=== PATIENT | male | born 1980 | race Caucasian/White ===

== ENCOUNTER 2023-11-02 10:23 | Outpatient (CLI) | payer OTHER, SELFPAY ==
[2023-11-02 10:58] LABS: Hematocrit 28.4 % (40.0-54.0); Mean Corpuscular HGB Conc 31.7 g/dL (32-36); Mean Corpuscular Hemoglobin 31.7 pg (27.0-31.0); Mean Platelet Volume 8.4 fl (8.7-11.0); Platelet Count Result 159 K/mm3 (150-420); Red Blood Count 2.84 M/mm3 (4.70-6.10); Red Cell Distribution Width 17.1 % (11.6-14.4); White Blood Count 1.6 K/mm3 (4.8-10.8)
[2023-11-02 11:11] LABS: Partial Thromboplastin Time 26.6 Sec (23.9-30.70); Prothrombin Time 10.6 Seconds (9.50-12.1)
[2023-11-02 11:18] LABS: Band Neutrophils Percent 1 % (0-6); Lymphocytes Absolute Manual 0.62 K/mm3 (1.1-4.5); Lymphocytes Percent Manual 39 % (18-44); Monocytes Absolute Manual 0.11 K/mm3 (0.1-0.90); Monocytes Percent Manual 7 % (3-9); Neutrophils Percent Manual 49 % (46-73); Total Cells Counted 100
[2023-11-02 11:19] LABS: Eosinophils Absolute Manual 0.06 K/mm3 (0.02-0.50); Eosinophils Percent Manual 4 % (1-6); Platelet Estimate Adequate (Adequate)
[2023-11-02 12:47] LABS: HIV 1 P24 AG Negative (Negative); HIV 1/2 AB Negative (Negative)
[2023-11-03 07:53] LABS: Fibrinogen 239 mg/dL (175-425)
[2023-11-04 06:58] LABS: Hepatitis B Surface Antigen NON-REACTIVE (NON-REACTIVE)
[2023-11-04 07:53] LABS: Hepatitis C Virus Antibody NON-REACTIVE (NON-REACTIVE)
[2023-11-04 07:58] LABS: Hepatitis A Antibody IgM NON-REACTIVE (NON-REACTIVE); Hepatitis B Core Antibody NON-REACTIVE (NON-REACTIVE)
[2023-11-04 09:53] LABS: Alanine Aminotransferase 31 U/L (6-50); Albumin Level 4.2 g/dL (3.5-5.1); Alkaline Phosphatase 181 U/L (38-126); Anion Gap 10 mmol/L (4-12); Aspartate Amino Transferase 26 U/L (17-59); Bilirubin,Total 0.2 mg/dL (0.2-1.3); Blood Urea Nitrogen 17 mg/dL (9-20); Calcium 9.2 mg/dL (8.4-10.2); Carbon Dioxide 27 mmol/L (22-30); Chloride 101 mmol/L (98-107); Estimated Glomerular Filt Rate > 60; Glucose 94 mg/dL (65-110); Iron 75 ug/dL (49-181); Osmolality Calculated 287 mOsm/kg (285-295); Potassium 4.4 mmol/L (3.4-5.0); Sodium 138 mmol/L (137-145)
[2023-11-04 10:02] LABS: Percent Iron Saturation 32 % (20-50)
[2023-11-04 10:59] LABS: Folic Acid 15.2 ng/mL (2.76->20)
[2023-11-08 12:02] LABS: Reference Lab Test Name FLOW CYTOMETRY
== END 2023-11-02 10:24 | disposition home or self-care (01) ==
PROVIDERS: PCP Family Medicine; Visit Provider Internal Medicine Hematology
DX: D61.818 Other pancytopenia (principal)
CPT/HCPCS: 36415; 80053; 80074; 82607; 82746; 83540; 83550; 85025; 85384; 85610; 85730; 87806; 88184; 88185

== ENCOUNTER 2023-11-07 08:04 | Outpatient (CLI) | payer OTHER, SELFPAY ==
--- NOTE | ~2023-11-07 | CT_ITS ---
EXAMINATION: CT chest abdomen pelvis w con DATE: 11/07/2023 08:57 INDICATION: Pancytopenia. Recent fall with right rib pain. TECHNIQUE: Computed tomography (CT) of the chest, abdomen, and pelvis was performed without intraveno us contrast. Automated exposure control and iterative reconstruction technique were employed. The dos e-length product was 1751.35 mGy-cm. COMPARISON: None FINDINGS: CHEST CT: Mild groundglass opacities and some tree-in-bud opacity along linear bands of discoid atelectasis/sca rring in the left lower lobe which raises concern for associated pneumonia. A couple additional small regions of tree-in-bud opacity in the anterior segment of the left upper lobe. There is also mild at electasis at the lingula. Mild dependent atelectasis in the right lower lobe along side a few mildly displaced subacute fractures of the posterolateral right fifth-ninth ribs with developing early callu s formation. No pleural effusion or pneumothorax. Heart size is normal. No pericardial effusion. Thor acic aorta is normal in caliber with no dissection. Mild likely reactive mediastinal lymphadenopathy, the largest lymph node measuring 1.2 cm in short axis diameter situated between the bilateral brachi ocephalic veins. Mild thoracic spondylosis with chronic appearing mild anterior wedging of a few lowe r thoracic vertebral bodies.. ABDOMEN/PELVIS CT: Liver, gallbladder, pancreas, bilateral adrenal glands and kidneys are normal. Splenomegaly measuring 18.9 maximal craniocaudal length. Bowels including the appendix are normal. Bladder is normal. No fr ee intraperitoneal gas or fluid. No pathologically enlarged abdominal or pelvic lymphadenopathy. Like ly lateral right buttock/hip internal degloving injury with lenticular fluid collection consistent wi th hematoma/seroma measuring 16.2 cm craniocaudally and 6.0 x 2.7 cm in maximal transaxial dimensions along the superficial fascial plane of the right gluteal musculature. Mild lumbar and moderate lumbo sacral spondylosis. IMPRESSION: 1. Groundglass and tree-in-bud opacities in the left lower lobe with additional tree-in-bud opacities in the left upper lobe suspicious for pneumonia or sequela of prior pneumonia. 2. Healing subacute mildly displaced posterolateral right fifth-ninth rib fractures. 3. Likely reactive mild mediastinal lymphadenopathy. 4. Nonspecific splenomegaly measuring 18.9 cm. No acute intra-abdominal/pelvic process. 5. 16 x 6 x 3 cm likely hematoma/seroma suggesting internal degloving injury along the superficial fa scia of the lateral right gluteal muscles. Reviewed, dictated and finalized at location B. IMPRESSION: 1. Groundglass and tree-in-bud opacities in the left lower lobe with additional tree-in-bud opacities in the left upper lobe suspicious for pneumonia or seque la of prior pneumonia. 2. Healing subacute mildly displaced posterolateral right fifth-ninth rib fract ures. 3. Likely reactive mild mediastinal lymphadenopathy. 4. Nonspecific splenomegaly measuring 18.9 cm. No acute intra-abdominal/pelvic process. 5. 16 x 6 x 3 cm likely hematoma/seroma suggesting internal degloving injury al venus the superficial fascia of the lateral right gluteal muscles.
== END 2023-11-07 08:05 | disposition home or self-care (01) ==
PROVIDERS: PCP Family Medicine; Visit Provider Internal Medicine Hematology
DX: D61.818 Other pancytopenia (principal); R91.8 Other nonspecific abnormal finding of lung field; S22.41XD Multiple fractures of ribs, right side, subsequent encounter for fracture with routine healing; R59.0 Localized enlarged lymph nodes; R16.1 Splenomegaly, not elsewhere classified
CPT/HCPCS: 71260; 74177; Q9967

== ENCOUNTER 2023-12-14 14:04 | Outpatient (CLI) | payer OTHER, SELFPAY ==
[2023-12-14 14:19] LABS: Hematocrit 35.5 % (40.0-54.0); Hemoglobin 11.4 g/dL (14.0-18.0); Immature Platelet Fraction Pct 1.4 % (1.0-7.0); Mean Corpuscular HGB Conc 32.1 g/dL (32-36); Mean Corpuscular Hemoglobin 31.8 pg (27.0-31.0); Mean Corpuscular Volume 98.9 fL (78.0-102.0); Mean Platelet Volume 8.4 fl (8.7-11.0); Platelet Count Result 116 K/mm3 (150-420); Red Blood Count 3.59 M/mm3 (4.70-6.10); Red Cell Distribution Width 16.7 % (11.6-14.4); White Blood Count 2.1 K/mm3 (4.8-10.8)
[2023-12-14 14:33] LABS: Partial Thromboplastin Time 26.5 Sec (23.9-30.70); Prothrombin Time 10.9 Seconds (9.50-12.1)
[2023-12-14 15:09] LABS: Alanine Aminotransferase 35 U/L (16-63); Albumin Level 4.3 g/dL (3.4-5.0); Alkaline Phosphatase 204 U/L (46-116); Anion Gap 9 mmol/L (4-12); Aspartate Amino Transferase 17 U/L (15-37); Bilirubin,Total 0.3 mg/dL (0.00-1.00); Blood Urea Nitrogen 16 mg/dL (7-18); Calcium 9.1 mg/dL (8.5-10.1); Carbon Dioxide 28 mmol/L (21-32); Chloride 102 mmol/L (98-108); Estimated Glomerular Filt Rate > 60; Glucose 136 mg/dL (70-99); Lactate Dehydrogenase 186 U/L (85-227); Osmolality Calculated 291 mOsm/kg (285-295); Potassium 4.2 mmol/L (3.5-5.1); Sodium 139 mmol/L (136-145); Total Protein 8.1 g/dL (6.4-8.2)
[2023-12-14 15:51] LABS: Band Neutrophils Percent 1 % (0-6); Basophils Percent Manual 0 % (0-1); Eosinophils Absolute Manual 0.02 K/mm3 (0.02-0.50); Eosinophils Percent Manual 1 % (1-6); Lymphocytes Absolute Manual 1.05 K/mm3 (1.1-4.5); Lymphocytes Percent Manual 50 % (18-44); Monocytes Absolute Manual 0.04 K/mm3 (0.1-0.90); Monocytes Percent Manual 2 % (3-9); Neutrophils Absolute Manual 0.98 K/mm3 (1.3-6.7); Neutrophils Percent Manual 46 % (46-73); Platelet Estimate Adequate (Adequate); Total Cells Counted 100
[2023-12-15 08:14] LABS: Fibrinogen 389 mg/dL (175-425)
== END 2023-12-14 14:05 | disposition home or self-care (01) ==
LOC: CHSLAB 14:05
PROVIDERS: PCP Family Medicine; Visit Provider Internal Medicine Hematology
DX: D61.818 Other pancytopenia (principal)
CPT/HCPCS: 36415; 80053; 83615; 85025; 85055; 85384; 85610; 85730; 86850; 86900; 86901

== ENCOUNTER 2024-03-15 13:08 | Outpatient (CLI) | payer OTHER, SELFPAY ==
[2024-03-15 13:29] LABS: Hematocrit 31.6 % (40.0-54.0); Hemoglobin 10.3 g/dL (14.0-18.0); Immature Platelet Fraction Pct 0.9 % (1.0-7.0); Mean Corpuscular HGB Conc 32.6 g/dL (32-36); Mean Corpuscular Hemoglobin 31.8 pg (27.0-31.0); Mean Corpuscular Volume 97.5 fL (78.0-102.0); Mean Platelet Volume 8.7 fl (8.7-11.0); Platelet Count Result 99 K/mm3 (150-420); Red Blood Count 3.24 M/mm3 (4.70-6.10); Red Cell Distribution Width 17.4 % (11.6-14.4); White Blood Count 1.7 K/mm3 (4.8-10.8)
--- NOTE | 2024-03-15 13:36 | ECHO_ITS ---
Patient Info Name: Samy Garcia Age: 43 years : 1980 Gender: Male Ht: 72 in Wt: 290 lbs BSA: 2.64 m2 HR: 73 bpm BP: 124 / 82 mmHg Technical Quality: Excellent, Good Exam Date: 03/15/2024 1:45 PM Exam Location: Echo Lab Patient Status: Outpatient Admit Date: 03/15/2024 Staff Ordering Physician: Atilio Berrios MD Risk Modeler: Candy Jo RDCS Attending Provider: Atilio Berrios MD Exam Type: CA echo doppler color flow Study Info Complete two-dimensional, color flow and Doppler transthoracic echocardiogram is performed. Summary 1. Complete two-dimensional, color flow and Doppler transthoracic echocardiogram is performed. 2. Left ventricular chamber dimension is normal. 3. Left ventricular systolic function is normal, estimated at 60-65%. 4. The left ventricular diastolic function is normal. 5. E/e' 9 is minimally elevated. 6. Left atrial chamber dimension is mildly enlarged. 7. There is trace tricuspid valve regurgitation. 8. No pulmonary hypertension, estimated pulmonary arterial systolic pressure is 32 mmHg. 9. There is trace pulmonic regurgitation. Left Ventricle E/e' 9 is minimally elevated. Left ventricular chamber dimension is normal. Left ventricular systolic function is normal, estimated at 60-65%. The left ventricular diastolic function is normal. Right Ventricle Right ventricular systolic function is normal and with normal TAPSE 2.7 cm. Right ventricular chamber dimension is normal. Left Atria Left atrial chamber dimension is mildly enlarged. Right Atria Right atrial chamber dimension is normal. Aortic Valve The aortic valve is trileaflet. There is no aortic valve stenosis. There is no aortic valve regurgitation. Pulmonic Valve There is trace pulmonic regurgitation. Mitral Valve There is no mitral valve stenosis. There is no mitral valve regurgitation. Tricuspid Valve There is trace tricuspid valve regurgitation. No pulmonary hypertension, estimated pulmonary arterial systolic pressure is 32 mmHg. Pericardium/Pleural There is no pericardial effusion. Inferior Vena Cava Normal inferior vena cava with >50% collapse upon inspiration consistent with normal right atrial pressure, 5 mmHg. Aorta The aortic root size at the sinus of Valsalva is normal. Left Ventricular Outflow Tract Name Value Normal LVOT 2D LVOT Diameter 2.2 cm LVOT Doppler LVOT Peak Velocity 120 cm/s LVOT Peak Gradient 6 mmHg LVOT Mean Gradient 3 mmHg LVOT VTI 20 cm LVOT VTI/AV VTI Ratio 0.8 LVOT Stroke Volume 78 ml Pulmonic Valve Name Value Normal PV Doppler PV Peak Velocity 108 cm/s PV Peak Gradient 5 mmHg PV Regurgitation Doppler ID Peak End Diastolic Velocity 107 cm/s Mitral Valve Name Value Normal MV Doppler MV Peak Gradient 6 mmHg MV Mean Gradient 2 mmHg MV Decel Stephens 427 cm/s2 MV PHT 61 ms MV Area (PHT) 3.6 cm2 4.0-5.0 MV Area (Cont Eq VTI) 2.6 cm2 MV Diastolic Function MV E Peak Velocity 90 cm/s MV A Peak Velocity 58 cm/s MV E/A 1.5 MV Decel Time 210 ms Tricuspid Valve Name Value Normal TV Regurgitation Doppler TR Peak Velocity 262 cm/s TR Peak Gradient 25 mmHg Estimated PAP/RSVP RA Pressure 5 mmHg <=5 PA Systolic Pressure 32 mmHg <36 RV Systolic Pressure 32 mmHg <36 Aortic Valve Name Value Normal AV Doppler AV Peak Velocity 128 cm/s AV Peak Gradient 7 mmHg AV Mean Gradient 4 mmHg AV VTI 26 cm AV Area (Cont Eq VTI) 3.0 cm2 >=3.0 AV Area (Cont Eq Chavo) 3.6 cm2 AV V1/V2 Ratio 0.93 AV Regurgitation 2D LVOT Area 3.8 cm2 Ventricles Name Value Normal LV Dimensions 2D/MM IVS Diastolic Thickness (2D) 0.8 cm 0.6-1.0 IVS Diastole Thickness (MM) 0.8 cm 0.6-1.0 LVID Diastole (2D) 5.6 cm 4.2-5.8 LVID Diastole (MM) 5.8 cm 4.2-5.8 LVIW Diastolic Thickness (2D) 0.9 cm 0.6-1.0 LVIW Diastolic Thickness (MM) 0.9 cm 0.6-1.0 IVS Systolic Thickness (MM) 1.1 cm LVID Systole (2D) 4.1 cm 2.5-4.0 LVID Systole (MM) 4.1 cm 2.5-4.0 LVIW Systolic Thickness (MM) 1.3 cm LVOT Diameter 2.2 cm LV Mass (2D Cubed) 184.01 g 88.00-224.00 LV Mass Index (2D Cubed) 70 g/m2 49-115 Relative Wall Thickness (2D) 0.34 LV Mass (MM Cubed) 190.24 g 88.00-224.00 LV Mass Index (MM Cubed) 72 g/m2 49-115 Relative Wall Thickness (MM) 0.30 LV Fractional Shortening/Ejection Fraction 2D/MM LV Fractional Shortening (2D) 26 % 25-43 LV Fractional Shortening (MM) 29 % 25-43 LV EF (MM Teicholz) 55 % 52-72 LV EF (2D Teicholz) 50 % 52-72 LV Diastolic Volume (4C MOD) 163 ml LV EF (4C MOD) 62 % LV Diastolic Length (4C) 9.0 cm LV Systolic Length (4C) 7.5 cm LV Stroke Volume (4C MOD) 102 ml Atria Name Value Normal LA Dimensions LA Volume (4C A-L) 63 ml RA Dimensions RA Area (4C) 16.3 cm2 <=18.0 Report Signatures
[2024-03-15 14:00] LABS: Alanine Aminotransferase 35 U/L (16-63); Alkaline Phosphatase 199 U/L (46-116); Anion Gap 10 mmol/L (4-12); Aspartate Amino Transferase 15 U/L (15-37); Band Neutrophils Percent 0 % (0-6); Bilirubin,Total 0.4 mg/dL (0.00-1.00); Blood Urea Nitrogen 15 mg/dL (7-18); Carbon Dioxide 29 mmol/L (21-32); Chloride 102 mmol/L (98-108); Estimated Glomerular Filt Rate > 60; Glucose 115 mg/dL (70-99); Lactate Dehydrogenase 136 U/L (85-227); Lymphocytes Absolute Manual 0.88 K/mm3 (1.1-4.5); Lymphocytes Percent Manual 52 % (18-44); Monocytes Absolute Manual 0.05 K/mm3 (0.1-0.90); Monocytes Percent Manual 3 % (3-9); Neutrophils Absolute Manual 0.76 K/mm3 (1.3-6.7); Neutrophils Percent Manual 45 % (46-73); Osmolality Calculated 293 mOsm/kg (285-295); Platelet Estimate Decreased (Adequate); Sodium 141 mmol/L (136-145); Total Cells Counted 100; Total Protein 7.4 g/dL (6.4-8.2); Uric Acid 5.3 mg/dL (3.5-7.2)
== END 2024-03-15 13:09 | disposition home or self-care (01) ==
LOC: CHSIMG 13:11
PROVIDERS: PCP Family Medicine; Visit Provider Internal Medicine Hematology
DX: Z51.81 Encounter for therapeutic drug level monitoring (principal)
CPT/HCPCS: 36415; 80053; 83615; 84550; 85025; 85055; 93306

== ENCOUNTER 2024-03-28 10:36 | Outpatient (CLI) | payer OTHER, SELFPAY ==
[2024-03-28 10:45] VITALS: BP 130/75; PULSE 76; RESP 16; TEMP 36.6; O2SAT 97; BMI 39.3
[2024-03-28] MEDS: CLADRIBINE IVPB (11:19)
[2024-03-28] MEDS: SODIUM CHLORIDE 0.9% IVPB (11:19)
--- OUTSIDE RECORDS SUMMARY | 2024-03-28 11:38 | XMS_ITS | Encounter Summary ---
Author Organization [facility] Address [facility] [place] [address] [place] [address] Care Team Providers Care Foundation Digger Name Role Phone Everette Salazar MD Primary Care Provider [phone] Encounter Details Date Type Department Care Team (Late st Contact Info) Description 08/05/2018 Abstract SFL CONVERSION [address] [place] [address] , Generic Conversion, Social History Tobacco Use Types Packs/Day Years Used Date Smoking Tobacco: Never Assessed Sex and Gender Information Value Date Recorded Sex Assigned at Not on file Legal Sex Male 5:58 PM MID TEACHER Gender Identity Not on file Sexual Orientation Not on file documented as of this encounter Plan of Treatment Not on file documented as of this encounter Visit Diagnoses Not on filedocumented in this encounter Additional Health Concerns Infection Onset Date Last Indicated Resolved Time COVID-19 Rule Out 04/20/2020 04/20/2020 04/21/2020 12:41 PM MID TEACHER COVID-19 Rule Out 04/23/2020 04/23/2020 04/23/2020 12:47 PM MID TEACHER documented as of this encounter Care Teams Foundation Digger Relationship Specialty Start Date End Date Everette Salazar MD [address] [place] [address] PCP - General FAMILY PRACTICE 07/25/18 documented as of this encounter
--- OUTSIDE RECORDS SUMMARY | 2024-03-28 11:38 | XMS_ITS | Encounter Summary ---
Author Organization [facility] Address [address] [place] [address] Care Team Providers Care Penetration Tester Name Role Phone Unavailable Primary Care Provider Unavailabl e Encounter Details Date Type Department Care Team (Late st Contact Info) Description 08/12/2004 Outpatient Historical [facility]3] Primary Care - [address] [place] [address] Belgica Hernadez MD NO ADDRESS ON FILE Social History Tobacco Use Types Packs/Day Years Used Date Smoking Tobacco: Never Assessed Sex and Gender Information Value Date Recorded Sex Assigned at Not on file 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
--- OUTSIDE RECORDS SUMMARY | 2024-03-28 11:38 | XMS_ITS | Clinical Summary ---
Author Organization [facility] Address [facility] [facility] [place] [address] [place] [address] Care Team Providers Care Business Continuity Coordinator Name Role Phone Everette Salazar MD Primary Care Provider [phone] Allergies Active Allergy Reactions Criticality Noted Date Comments Egg White (Egg Protein) GI Upset Medium 04/21/2020 Penicillins Swelling High 04/21/2020 Medications HYDROcodone-alexa taminophen 7.5-325 MG tablet Take 1 tablet by mouth as needed for Pain. Chronic back pain 1 Active carBAMazepine 200 MG tabletIndicatio ns:chronic back pain Take 200 mg by mouth 2 (two) times daily. Indications: chronic back pain Active DULoxetine 60 MG capsuleIndicati ons:depression Take 60 mg by mouth 2 (two) times daily. Indications: depression Active ofloxacin 0.3 % ophthalmic solutionIndicat ions:surgery drop Place 1 drop into the right eye 3 (three) times daily. Indications: surgery drop Active prednisoLONE acetate 1 % ophthalmic suspensionIndic ations:surgery drop Place 1 drop into the right eye 3 (three) times daily. Indications: surgery drop Active ketorolac 0.5 % ophthalmic solution Place 1 drop into the right eye 3 (three) times daily. Surgery drop 1 Active Active Problems Problem Noted Date Diagnosed Date Cataracts, bilateral Overview (05/07/2021): Due to taking Prednisone a couple of years ago. pt states Family History Medical History Relation Comments Cancer Father Leukemia Diabetes Father Hypertension Father Cancer Mother Throat Relation Status Comments Brother Alive Father Alive Mother Alive Social History Tobacco Use Types Packs/Day Years Used Date Smoking Tobacco: Every Day Cigarettes 0.5 24 Cigars Smokeless Tobacco: Never Tobacco Cessation:Ready to Q uit: No Comments:14 yrs of Cigarettes,10 yrs of Cigar(5-6/day) Alcohol Use Standard Drinks/Week Comments Not Currently 0 (1 standard drink = 0.6 oz pur e alcohol) Sex and Gender Information Value Date Recorded Sex Assigned at Not on file Legal Sex Male 5:58 PM INSIDE OUTSIDE SALES REPRESENTATIVE Gender Identity Not on file Sexual Orientation Not on file Last Filed Vital Signs Vital Sign Reading Time Taken Comments Blood Pressure 124/86 04/23/2020 10:30 AM INSIDE OUTSIDE SALES REPRESENTATIVE Pulse 64 04/23/2020 10:30 AM INSIDE OUTSIDE SALES REPRESENTATIVE Temperature 36.5 ??C (97.7 ??F) 04/23/2020 10:[address] Respiratory Rate 18 04/23/2020 10:30 AM INSIDE OUTSIDE SALES REPRESENTATIVE Oxygen Saturation 96% 04/23/2020 10:30 AM INSIDE OUTSIDE SALES REPRESENTATIVE Inhaled Oxygen Concentration - - Weight 118 kg (260 lb 2.3 oz) 04/21/2020 10:47 A M INSIDE OUTSIDE SALES REPRESENTATIVE Height 182 cm (5' 11.65 ) 04/21/2020 10:47 AM CS T Body Mass Index 35.62 04/21/2020 10:47 AM INSIDE OUTSIDE SALES REPRESENTATIVE Plan of Treatment Health Maintenance Due Date Last Done Comments Annual Physical 05/13/1983 Pneumococcal Vaccine: Pediat rics (0 to 5 Years) and At-Risk Patients (6 to 64 Years) (1 of 2 - PCV) 1986 Hepatitis C 1998 DTaP, Tdap and Td Vaccines ( 1 - Tdap) 05/13/1999 Hepatitis B Vaccines (1 of 3 - 19+ 3-dose series) 05/13/1999 COVID-19 Vaccine (2023-2 5 season) 2023 Influenza Adult (#1) 2023 HPV Vaccines Aged Out No longer eligi ble based on patient's age to complete this topic Meningococcal B Vaccine Aged Out No l onger eligible based on patient's age to complete this topic Meningococcal Vaccine Aged Out No chito ayan eligible based on patient's age to complete this topic RSV Immunizations Under 20 Months Aged Out No longer eligible based on patient's age to complete this topic Medical Devices Implanted Type Area Tank Carpenter Device Identifier Shelf Expiration Date Model / Serial / Lot Iol Adalid Sn60wf - [id number] Implanted:Qty: 1 on 04/23/2020 by Manjit Capellan MD at [facility] Lens Right: Eye ADALID - SURGICAL DIV [id number] 04/28/2023 [id number] / [id number] Description:Dr. Capellan confirm ed IOl Insurance [employer] Care Teams Business Continuity Coordinator Relationship Specialty Start Date End Date Everette Salazar MD [address] [place] [id number] PCP - General FAMILY PRACTICE 07/25/18
--- OUTSIDE RECORDS SUMMARY | 2024-03-28 11:38 | XMS_ITS | Clinical Summary ---
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
--- OUTSIDE RECORDS SUMMARY | 2024-03-28 11:38 | XMS_ITS | Encounter Summary ---
Author Organization [facility] Address [address] [place] [address] Care Team Providers Care Trust Operations Assistant Name Role Phone Unavailable Primary Care Provider Unavailabl e Encounter Details Date Type Department Care Team (Late st Contact Info) Description 09/10/[address] 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
[2024-03-28 13:36] VITALS: BP 130/70; PULSE 80; RESP 14; O2SAT 98
[2024-03-28] MEDS: HEPARIN SODIUM LOCK FLUSH 500 UNITS/5 ML SYRINGE IV PUSH (13:36)
--- NOTE | 2024-03-28 13:38 | PC.NURSE ---
Tolerated cycle 1 day 3 treatment well. SEE MAR/Patient care notes.
== END 2024-03-28 10:37 | disposition home or self-care (01) ==
PROVIDERS: PCP Family Medicine; Visit Provider Internal Medicine Hematology
DX: Z51.11 Encounter for antineoplastic chemotherapy (principal); C91.40 Hairy cell leukemia not having achieved remission
CPT/HCPCS: 96413; 96415; J7040; J9065

== ENCOUNTER 2024-03-29 10:31 | Outpatient (CLI) | payer OTHER, SELFPAY ==
[2024-03-29 10:52] VITALS: BP 128/76; PULSE 78; RESP 14; TEMP 36.5; O2SAT 97; BMI 39.2
[2024-03-29] MEDS: SODIUM CHLORIDE 0.9% IVPB (11:00)
[2024-03-29] MEDS: CLADRIBINE IVPB (11:00)
--- OUTSIDE RECORDS SUMMARY | 2024-03-29 11:24 | XMS_ITS | Clinical Summary ---
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
--- OUTSIDE RECORDS SUMMARY | 2024-03-29 11:24 | XMS_ITS | Encounter Summary ---
Author Organization [facility] Address [facility] 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 Gender Identity Not on file Sexual Orientation Not on file documented as of this encounter Plan of Treatment Not on file documented as of this encounter Visit Diagnoses Not on filedocumented in this encounter Additional Health Concerns Infection Onset Date Last Indicated Resolved Time COVID-19 Rule Out 04/20/2020 04/20/2020 04/21/2020 12:41 PM POLISH COMPOUNDER COVID-19 Rule Out 04/23/2020 04/23/2020 04/23/2020 12:47 PM POLISH COMPOUNDER documented as of this encounter Care Teams Safety Deposit Boxes Custodian Relationship Specialty Start Date End Date Everette Salazar MD [address] [place] [address] PCP - General FAMILY PRACTICE 07/25/18 documented as of this encounter
--- OUTSIDE RECORDS SUMMARY | 2024-03-29 11:24 | XMS_ITS | Encounter Summary ---
Author Organization [facility] Address 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
--- OUTSIDE RECORDS SUMMARY | 2024-03-29 11:24 | XMS_ITS | Encounter Summary ---
Author Organization [facility] Address [address] [place] [address] Care Team Providers Care Prospect Manager Name Role Phone Unavailable Primary Care Provider Unavailabl e Encounter Details Date Type Department Care Team (Late st Contact Info) Description 09/10/2004 Outpatient Historical [facility] Primary Care - [address] [place] [address] Belgica Hernadez MD NO ADDRESS ON FILE Social History Tobacco Use Types Packs/Day Years Used Date Smoking Tobacco: Never Assessed Sex and Gender Information Value Date Recorded Sex Assigned at Not on file Legal Sex Male 2:42 AM CARVER AND CHECKERER SPECIALS Gender Identity Not on file Sexual Orientation Not on file documented as of this encounter Plan of Treatment Not on file documented as of this encounter Visit Diagnoses Not on filedocumented in this encounter
--- OUTSIDE RECORDS SUMMARY | 2024-03-29 11:24 | XMS_ITS | Clinical Summary ---
Author Organization [facility] Address [facility] [facility] [place] [address] [place] [address] Care Team Providers Care Automatic Driller And Reamer Name Role Phone Everette Salazar MD Primary Care Provider [phone] Allergies Active Allergy Reactions Criticality Noted Date [...] on file Legal Sex Male 5:58 PM DOWNSTAIRS MAID Gender Identity Not on file Sexual Orientation Not on file Last Filed Vital Signs Vital Sign Reading Time Taken Comments Blood Pressure 124/86 04/23/2020 10:30 AM DOWNSTAIRS MAID Pulse 64 04/23/2020 10:30 AM DOWNSTAIRS MAID Temperature 36.5 ??C (97.7 ??F) 04/23/2020 10:[address] Respiratory Rate 18 04/23/2020 10:30 AM DOWNSTAIRS MAID Oxygen Saturation 96% 04/23/2020 10:30 AM DOWNSTAIRS MAID Inhaled Oxygen Concentration - - Weight 118 kg (260 lb 2.3 oz) 04/21/2020 10:47 A M DOWNSTAIRS MAID Height 182 cm (5' 11.65 ) 04/21/2020 10:47 AM CS T Body Mass Index 35.62 04/21/2020 10:47 AM DOWNSTAIRS MAID Plan of Treatment Health Maintenance Due Date [...] this topic Medical Devices Implanted Type Area Diesel Truck Mechanic Device Identifier Shelf Expiration Date Model / Serial / Lot Iol Adalid Sn60wf - [id number] Implanted:Qty: 1 on 04/23/2020 by Manjit Capellan MD at [facility] Lens Right: Eye ADALID - SURGICAL DIV [id number] 04/28/2023 [id number] / [id number] Description:Dr. Capellan confirm ed IOl Insurance [place] [place] Care Teams Automatic Driller And Reamer Relationship Specialty Start Date End Date Everette Salazar MD [address] [place] [phone] PCP - General FAMILY PRACTICE 07/25/18
[2024-03-29] MEDS: HEPARIN SODIUM LOCK FLUSH 500 UNITS/5 ML SYRINGE IV PUSH (12:59)
[2024-03-29 13:09] VITALS: BP 133/77; PULSE 80; RESP 14; TEMP 36.6; O2SAT 97
--- NOTE | 2024-03-29 13:10 | PC.NURSE ---
Tolerated Cladribine infusion well today. SEE Patient care notes/MAR.
== END 2024-03-29 10:32 | disposition home or self-care (01) ==
PROVIDERS: PCP Family Medicine; Visit Provider Internal Medicine Hematology
DX: Z51.11 Encounter for antineoplastic chemotherapy (principal); C91.40 Hairy cell leukemia not having achieved remission
CPT/HCPCS: 96413; 96415; J7040; J9065

== ENCOUNTER 2024-03-30 09:29 | Outpatient (CLI) | payer OTHER, SELFPAY ==
[2024-03-30 09:38] VITALS: BP 128/80; PULSE 80; RESP 14; TEMP 36.6; O2SAT 97; BMI 39.2
--- OUTSIDE RECORDS SUMMARY | 2024-03-30 09:47 | XMS_ITS | Clinical Summary ---
Author Organization [facility] Address [facility] [place] [address] [place] [address] Care Team Providers Care Heliotherapist Name Role Phone Everette Salazar MD Primary Care Provider [phone] Allergies Active Allergy Reactions Criticality Noted Date [...] on file Legal Sex Male 5:58 PM DRILL OPERATOR PNEUMATIC Gender Identity Not on file Sexual Orientation Not on file Last Filed Vital Signs Vital Sign Reading Time Taken Comments Blood Pressure 124/86 04/23/2020 10:30 AM DRILL OPERATOR PNEUMATIC Pulse 64 04/23/2020 10:30 AM DRILL OPERATOR PNEUMATIC Temperature 36.5 ??C (97.7 ??F) 04/23/2020 10:[address] Respiratory Rate 18 04/23/2020 10:30 AM DRILL OPERATOR PNEUMATIC Oxygen Saturation 96% 04/23/2020 10:30 AM DRILL OPERATOR PNEUMATIC Inhaled Oxygen Concentration - - Weight 118 kg (260 lb 2.3 oz) 04/21/2020 10:47 A M DRILL OPERATOR PNEUMATIC Height 182 cm (5' 11.65 ) 04/21/2020 10:47 AM CS T Body Mass Index 35.62 04/21/2020 10:47 AM DRILL OPERATOR PNEUMATIC Plan of Treatment Health Maintenance Due Date [...] this topic Medical Devices Implanted Type Area Concrete Batching Plant Operator Device Identifier Shelf Expiration Date Model / Serial / Lot Iol Adalid Sn60wf - [id number] Implanted:Qty: 1 on 04/23/2020 by Manjit Capellan MD at [facility] Lens Right: Eye ADALID - SURGICAL DIV [id number] 04/28/2023 [id number] / [id number] Description:Dr. Capellan confirm ed IOl Insurance [place] Care Teams Heliotherapist Relationship Specialty Start Date End Date Everette Salazar MD [address] [place] [phone] PCP - General FAMILY PRACTICE 07/25/18
--- OUTSIDE RECORDS SUMMARY | 2024-03-30 09:47 | XMS_ITS | Encounter Summary ---
Author Organization [facility] Address [facility] [place] [address] [place] [address] Care Team Providers Care Machinery Mechanic Name Role Phone Everette Salazar MD Primary Care Provider [phone] Encounter Details Date Type Department Care Team (Late st Contact Info) Description 08/05/2018 Abstract SFL CONVERSION [address] [place] [address] , Generic Conversion, Social History Tobacco Use Types Packs/Day Years Used Date Smoking Tobacco: Never Assessed Sex and Gender Information Value Date Recorded Sex Assigned at Not on file Legal Sex Male 5:58 PM SAP BI DEVELOPER Gender Identity Not on file Sexual Orientation Not on file documented as of this encounter Plan of Treatment Not on file documented as of this encounter Visit Diagnoses Not on filedocumented in this encounter Additional Health Concerns Infection Onset Date Last Indicated Resolved Time COVID-19 Rule Out 04/20/2020 04/20/2020 04/21/2020 12:41 PM SAP BI DEVELOPER COVID-19 Rule Out 04/23/2020 04/23/2020 04/23/2020 12:47 PM SAP BI DEVELOPER documented as of this encounter Care Teams Machinery Mechanic Relationship Specialty Start Date End Date Everette Salazar MD [address] [place] [address] PCP - General FAMILY PRACTICE 07/25/18 documented as of this encounter
[2024-03-30] MEDS: SODIUM CHLORIDE 0.9% IVPB (09:58)
[2024-03-30] MEDS: CLADRIBINE IVPB (09:58)
[2024-03-30] MEDS: HEPARIN SODIUM LOCK FLUSH 500 UNITS/5 ML SYRINGE IV PUSH (11:54)
[2024-03-30 12:10] VITALS: BP 131/81; PULSE 78; RESP 14; TEMP 36.6; O2SAT 97
--- NOTE | 2024-03-30 12:13 | PC.NURSE ---
Tolerated Cladribine infusion well. SEE MAR/patient care notes.
== END 2024-03-30 09:30 | disposition home or self-care (01) ==
PROVIDERS: PCP Family Medicine; Visit Provider Internal Medicine Hematology
DX: Z51.11 Encounter for antineoplastic chemotherapy (principal); C91.40 Hairy cell leukemia not having achieved remission
CPT/HCPCS: 96413; 96415; J7040; J9065

== ENCOUNTER 2024-04-09 08:47 | Outpatient (CLI) | payer OTHER, SELFPAY ==
[2024-04-09 09:00] VITALS: BP 132/79; PULSE 92; RESP 16; TEMP 36.6; O2SAT 97; BMI 39.3
--- OUTSIDE RECORDS SUMMARY | 2024-04-09 09:06 | XMS_ITS | Encounter Summary ---
Author Organization [facility] Address [facility] [place] [address] Care Team Providers Care Roller Embosser Name Role Phone Everette Salazar MD Primary Care Provider [phone] Encounter Details Date Type Department Care Team (Late st Contact Info) Description 08/05/2018 Abstract SFL CONVERSION [address] [place] [address] , Generic Conversion, Social History Tobacco Use Types Packs/Day Years Used Date Smoking Tobacco: Never Assessed Sex and Gender Information Value Date Recorded Sex Assigned at Not on file Legal Sex Male 5:58 PM FOOT PIECE ASSEMBLER Gender Identity Not on file Sexual Orientation Not on file documented as of this encounter Plan of Treatment Not on file documented as of this encounter Visit Diagnoses Not on filedocumented in this encounter Additional Health Concerns Infection Onset Date Last Indicated Resolved Time COVID-19 Rule Out 04/20/2020 04/20/2020 04/21/2020 12:41 PM FOOT PIECE ASSEMBLER COVID-19 Rule Out 04/23/2020 04/23/2020 04/23/2020 12:47 PM FOOT PIECE ASSEMBLER documented as of this encounter Care Teams Roller Embosser Relationship Specialty Start Date End Date Everette Salazar MD [address] [place] [address] PCP - General FAMILY PRACTICE 07/25/18 documented as of this encounter
--- OUTSIDE RECORDS SUMMARY | 2024-04-09 09:06 | XMS_ITS | Encounter Summary ---
Author Organization [facility] Address [address] [place] [address] Care Team Providers Care Formulator Compounder Name Role Phone Unavailable Primary Care Provider Unavailabl e Encounter Details Date Type Department Care Team (Late st Contact Info) Description 08/12/2004 Outpatient Historical [facility] Primary Care - [address] [place] [address] Belgica Hernadze MD NO ADDRESS ON FILE Social History Tobacco Use Types Packs/Day Years Used Date Smoking Tobacco: Never Assessed Sex and Gender Information Value Date Recorded Sex Assigned at Not on file Legal Sex Male 2:42 AM CHART CALCULATOR Gender Identity Not on file Sexual Orientation Not on file documented as of this encounter Plan of Treatment Not on file documented as of this encounter Visit Diagnoses Not on filedocumented in this encounter
--- OUTSIDE RECORDS SUMMARY | 2024-04-09 09:06 | XMS_ITS | Clinical Summary ---
Author Organization [facility] Address [address] [facility] Attn: Epic Prelude ADT TU WEBB [address] Care Team Providers Care Director Foundation Name Role Phone Unavailable Primary Care Provider Unavailabl e Social History Tobacco Use Types Packs/Day Years Used Date Smoking Tobacco: Never Assessed Sex and Gender Information Value Date Recorded Sex Assigned at Not on file Legal Sex Male 2:42 AM TELEVISION ANCHOR Gender Identity Not on file Sexual Orientation [...]
--- OUTSIDE RECORDS SUMMARY | 2024-04-09 09:06 | XMS_ITS | Clinical Summary ---
Author Organization [facility] Address [address] [place] [address] Care Team Providers Care House Builder Name Role Phone Everette Salazar MD Primary Care Provider [phone] Allergies Active Allergy Reactions Criticality Noted Date [...] on file Legal Sex Male 5:58 PM ESL PROFESSOR Gender Identity Not on file Sexual Orientation Not on file Last Filed Vital Signs Vital Sign Reading Time Taken Comments Blood Pressure 124/86 04/23/2020 10:30 AM ESL PROFESSOR Pulse 64 04/23/2020 10:30 AM ESL PROFESSOR Temperature 36.5 C (97.7 F) 04/23/2020 10:05 AM ESL PROFESSOR Respiratory Rate 18 04/23/2020 10:30 AM ESL PROFESSOR Oxygen Saturation 96% 04/23/2020 10:30 AM ESL PROFESSOR Inhaled Oxygen Concentration - - Weight 118 kg (260 lb 2.3 oz) 04/21/2020 10:47 A M ESL PROFESSOR Height 182 cm (5' 11.65 ) 04/21/2020 10:47 AM CS T Body Mass Index 35.62 04/21/2020 10:47 AM ESL PROFESSOR Plan of Treatment Health Maintenance Due Date [...] this topic Medical Devices Implanted Type Area Ice Puller Device Identifier Shelf Expiration Date Model / Serial / Lot Iol Adalid Sn60wf - [id number] Implanted:Qty: 1 on 04/23/2020 by Manjit Capellan MD at [facility] Lens Right: Eye ADALID - SURGICAL DIV [id number] 04/28/2023 SN60W / [id number] Description:Dr. Capellan confirm ed IOl Insurance [employer] Care Teams House Builder Relationship Specialty Start Date End Date Everette Salazar MD [address] [facility] [facility] [place] [address] PCP - General FAMILY PRACTICE 07/25/18
--- OUTSIDE RECORDS SUMMARY | 2024-04-09 09:06 | XMS_ITS | Encounter Summary ---
Author Organization [facility] Address [address] [place] [address] Care Team Providers Care Milieu Therapist Name Role Phone Unavailable Primary Care Provider Unavailabl e Encounter Details Date Type Department Care Team (Late st Contact Info) Description 09/10/2004 Outpatient Historical [facility] Primary Care - [address] [place] [address] Belgica Hernadez MD NO ADDRESS ON FILE Social History Tobacco Use Types Packs/Day Years Used Date Smoking Tobacco: Never Assessed Sex and Gender Information Value Date Recorded Sex Assigned at Not on file Legal Sex Male 2:42 AM APARTMENT COMMUNITY ASSISTANT MANAGER Gender Identity Not on file Sexual Orientation Not on file documented as of this encounter Plan of Treatment Not on file documented as of this encounter Visit Diagnoses Not on filedocumented in this encounter
[2024-04-09 09:28] LABS: Hematocrit 25.4 % (40.0-54.0); Hemoglobin 8.3 g/dL (14.0-18.0); Mean Corpuscular HGB Conc 32.7 g/dL (32-36); Mean Corpuscular Hemoglobin 32.4 pg (27.0-31.0); Mean Corpuscular Volume 99.2 fL (78.0-102.0); Mean Platelet Volume 9.3 fl (8.7-11.0); Platelet Count Result 118 K/mm3 (150-420); Red Blood Count 2.56 M/mm3 (4.70-6.10)
[2024-04-09 09:31] LABS: White Blood Count 0.4 K/mm3 (4.8-10.8)
[2024-04-09 09:52] LABS: Alanine Aminotransferase 148 U/L (16-63); Albumin Level 3.3 g/dL (3.4-5.0); Alkaline Phosphatase 164 U/L (46-116); Anion Gap 11 mmol/L (4-12); Aspartate Amino Transferase 72 U/L (15-37); Bilirubin,Total 0.4 mg/dL (0.00-1.00); Blood Urea Nitrogen 11 mg/dL (7-18); Calcium 8.9 mg/dL (8.5-10.1); Carbon Dioxide 23 mmol/L (21-32); Chloride 100 mmol/L (98-108); Estimated CRCL calculation 134 ml/min; Estimated Glomerular Filt Rate > 60; Glucose 120 mg/dL (70-99); Osmolality Calculated 278 mOsm/kg (285-295); Potassium 3.7 mmol/L (3.5-5.1); Sodium 134 mmol/L (136-145); Total Protein 7.7 g/dL (6.4-8.2)
[2024-04-09 10:19] LABS: Band Neutrophils Percent 2 % (0-6); Basophils Percent Manual 0 % (0-1); Eosinophils Percent Manual 0 % (1-6); Lymphocytes Absolute Manual 0.08 K/mm3 (1.1-4.5); Lymphocytes Percent Manual 20 % (18-44); Monocytes Percent Manual 1 % (3-9); Neutrophils Absolute Manual 0.31 K/mm3 (1.3-6.7); Neutrophils Percent Manual 77 % (46-73); Platelet Estimate Adequate (Adequate); Total Cells Counted 100
[2024-04-09] MEDS: ACETAMINOPHEN 325 MG TABLET 650 MG PO (10:40)
[2024-04-09] MEDS: dexAMETHasone SOD PHOS INJ 4 MG/ML VIAL 12 MG IV PUSH (10:40)
[2024-04-09] MEDS: SODIUM CHLORIDE 0.9% IV 250 ML 20 ML (10:40)
[2024-04-09] MEDS: FAMOTIDINE 20 MG/2 ML VIAL IV PUSH (10:44)
[2024-04-09] MEDS: diphenhydrAMINE HCl INJ 50 MG/ML VIAL 25 MG IV PUSH (10:46)
[2024-04-09] MEDS: SODIUM CHLORIDE 0.9% IVPB (11:00)
[2024-04-09] MEDS: RITUXIMAB ABBS IVPB (11:00)
[2024-04-09 11:45] VITALS: BP 132/77; PULSE 88; RESP 14; TEMP 36.6; O2SAT 96
[2024-04-09 13:01] VITALS: TEMP 36.6
[2024-04-09 13:25] VITALS: BP 132/79; PULSE 88; RESP 14; TEMP 36.6; O2SAT 97
[2024-04-09] MEDS: HEPARIN SODIUM LOCK FLUSH 500 UNITS/5 ML SYRINGE IV PUSH (14:39)
--- NOTE | 2024-04-09 14:39 | PC.NURSE ---
Patient tolerated Rituximab infusion well today. SEE MAR/patient care notes.
[2024-04-09 14:40] VITALS: BP 132/80; PULSE 88; RESP 16; TEMP 36.6; O2SAT 97
== END 2024-04-09 08:48 | disposition home or self-care (01) ==
PROVIDERS: PCP Family Medicine; Visit Provider Internal Medicine Hematology
DX: Z51.11 Encounter for antineoplastic chemotherapy (principal); C91.40 Hairy cell leukemia not having achieved remission
CPT/HCPCS: 36415; 36591; 80053; 85025; 85027; 96375; 96413; 96415; A9270; J1100; J1200; J7030; J7050; Q5115

== ENCOUNTER 2024-04-23 08:31 | Outpatient (CLI) | payer OTHER, SELFPAY ==
[2024-04-23 08:50] VITALS: BP 123/76; PULSE 72; RESP 14; TEMP 36.6; O2SAT 97; BMI 38.1
[2024-04-23 08:52] LABS: Hematocrit 31.4 % (40.0-54.0); Mean Corpuscular HGB Conc 31.8 g/dL (32-36); Mean Corpuscular Hemoglobin 32.3 pg (27.0-31.0); Mean Corpuscular Volume 101.3 fL (78.0-102.0); Mean Platelet Volume 8.4 fl (8.7-11.0); Platelet Count Result 162 K/mm3 (150-420); Red Cell Distribution Width 15.9 % (11.6-14.4)
--- OUTSIDE RECORDS SUMMARY | 2024-04-23 08:54 | XMS_ITS | Encounter Summary ---
Author Organization [facility] Address [address] [place] [address] Care Team Providers Care Senior Web Designer Name Role Phone Unavailable Primary Care Provider Unavailabl e Encounter Details Date Type Department Care Team (Late st Contact Info) Description 09/10/2004 Outpatient Historical [facility] Primary Care - [address] [place] [address] Belgica Hernadez MD NO ADDRESS ON FILE Social History Tobacco Use Types Packs/Day Years Used Date Smoking Tobacco: Never Assessed Sex and Gender Information Value Date Recorded Sex Assigned at Not on file Legal Sex Male 2:42 AM EMPLOYEE BENEFITS INSURANCE AGENT Gender Identity Not on file Sexual Orientation Not on file documented as of this encounter Plan of Treatment Not on file documented as of this encounter Visit Diagnoses Not on filedocumented in this encounter
--- OUTSIDE RECORDS SUMMARY | 2024-04-23 08:54 | XMS_ITS | Clinical Summary ---
Author Organization [facility] Address [address] [place] [address] Care Team Providers Care Silk Printer Name Role Phone Everette Salazar MD Primary Care Provider Allergies Active Allergy Reactions Criticality Noted Date [...] on file Legal Sex Male 5:58 PM INDUSTRIAL HEALTH AND SAFETY PROFESSOR Gender Identity Not on file Sexual Orientation Not on file Last Filed Vital Signs Vital Sign Reading Time Taken Comments Blood Pressure 124/86 04/23/2020 10:30 AM INDUSTRIAL HEALTH AND SAFETY PROFESSOR Pulse 64 04/23/2020 10:30 AM INDUSTRIAL HEALTH AND SAFETY PROFESSOR Temperature 36.5 C (97.7 F) 04/23/2020 10:05 AM INDUSTRIAL HEALTH AND SAFETY PROFESSOR Respiratory Rate 18 04/23/2020 10:30 AM INDUSTRIAL HEALTH AND SAFETY PROFESSOR Oxygen Saturation 96% 04/23/2020 10:30 AM INDUSTRIAL HEALTH AND SAFETY PROFESSOR Inhaled Oxygen Concentration - - Weight 118 kg (260 lb 2.3 oz) 04/21/2020 10:47 A M INDUSTRIAL HEALTH AND SAFETY PROFESSOR Height 182 cm (5' 11.65 ) 04/21/2020 10:47 AM CS T Body Mass Index 35.62 04/21/2020 10:47 AM INDUSTRIAL HEALTH AND SAFETY PROFESSOR Plan of Treatment Health Maintenance Due [...] this topic Medical Devices Implanted Type Area Converting Technician Device Identifier Shelf Expiration Date Model / Serial / Lot Iol Adalid Sn60wf - [id number] Implanted:Qty: 1 on 04/23/2020 by Manjit Capellan MD at [facility] Lens Right: Eye ADALID - SURGICAL DIV [id number] 04/28/2023 SN60W / [id number] Description:Dr. Capellan confirm ed IOl Insurance [employer] Care Teams Silk Printer Relationship Specialty Start Date End Date Everette Salazar MD [address] [facility] [place] [address] PCP - General FAMILY PRACTICE 07/25/18
--- OUTSIDE RECORDS SUMMARY | 2024-04-23 08:54 | XMS_ITS | Encounter Summary ---
Author Organization [facility] Address [facility] [place] [address] Care Team Providers Care Warehouse Shift Supervisor Name Role Phone Everette Salazar MD Primary Care Provider [phone] Encounter Details Date Type Department Care Team (Late st Contact Info) Description 08/05/2018 Abstract SFL CONVERSION [address] [place] [address] , Generic Conversion, Social History Tobacco Use Types Packs/Day Years Used Date Smoking Tobacco: Never Assessed Sex and Gender Information Value Date Recorded Sex Assigned at Not on file Legal Sex Male 5:58 PM SQUILGEER Gender Identity Not on file Sexual Orientation Not on file documented as of this encounter Plan of Treatment Not on file documented as of this encounter Visit Diagnoses Not on filedocumented in this encounter Additional Health Concerns Infection Onset Date Last Indicated Resolved Time COVID-19 Rule Out 04/20/2020 04/20/2020 04/21/2020 12:41 PM SQUILGEER COVID-19 Rule Out 04/23/2020 04/23/2020 04/23/2020 12:47 PM SQUILGEER documented as of this encounter Care Teams Warehouse Shift Supervisor Relationship Specialty Start Date End Date Everette Salazar MD [address] [place] [address] PCP - General FAMILY PRACTICE 07/25/18 documented as of this encounter
--- OUTSIDE RECORDS SUMMARY | 2024-04-23 08:54 | XMS_ITS | Encounter Summary ---
Author Organization [facility] Address [address] [place] [address] Care Team Providers Care Admin Secretary Name Role Phone Unavailable Primary Care Provider Unavailabl e Encounter Details Date Type Department Care Team (Late st Contact Info) Description 08/12/2004 Outpatient Historical [facility] Primary Care - [address] [place] [address] Belgica Hernadez MD NO ADDRESS ON FILE Social History Tobacco Use Types Packs/Day Years Used Date Smoking Tobacco: Never Assessed Sex and Gender Information Value Date Recorded Sex Assigned at Not on file Legal Sex Male 2:42 AM VISUALIZER Gender Identity Not on file Sexual Orientation Not on file documented as of this encounter Plan of Treatment Not on file documented as of this encounter Visit Diagnoses Not on filedocumented in this encounter
--- OUTSIDE RECORDS SUMMARY | 2024-04-23 08:54 | XMS_ITS | Clinical Summary ---
Author Organization [facility] Address [address] [facility] Attn: Epic Prelude ADT TU WEBB [address] Care Team Providers Care Cutter First Name Role Phone Unavailable Primary Care Provider Unavailabl e Social History Tobacco Use Types Packs/Day Years Used Date Smoking Tobacco: Never Assessed Sex and Gender Information Value Date Recorded Sex Assigned at Not on file Legal Sex Male 2:42 AM TECHNICAL SERVICES REPRESENTATIVE Gender Identity Not on file Sexual [...]
[2024-04-23 08:58] LABS: White Blood Count 0.7 K/mm3 (4.8-10.8)
[2024-04-23 09:04] LABS: Alanine Aminotransferase 51 U/L (16-63); Albumin Level 3.8 g/dL (3.4-5.0); Alkaline Phosphatase 184 U/L (46-116); Anion Gap 8 mmol/L (4-12); Aspartate Amino Transferase 22 U/L (15-37); Bilirubin,Total 0.3 mg/dL (0.00-1.00); Blood Urea Nitrogen 16 mg/dL (7-18); Calcium 8.8 mg/dL (8.5-10.1); Carbon Dioxide 29 mmol/L (21-32); Chloride 102 mmol/L (98-108); Estimated CRCL calculation 128 ml/min; Estimated Glomerular Filt Rate > 60; Glucose 122 mg/dL (70-99); Osmolality Calculated 290 mOsm/kg (285-295); Potassium 3.7 mmol/L (3.5-5.1); Sodium 139 mmol/L (136-145); Total Protein 7.7 g/dL (6.4-8.2)
[2024-04-23 09:06] LABS: Band Neutrophils Percent 0 % (0-6); Lymphocytes Absolute Manual 0.25 K/mm3 (1.1-4.5); Lymphocytes Percent Manual 36 % (18-44); Monocytes Absolute Manual 0.02 K/mm3 (0.1-0.90); Monocytes Percent Manual 4 % (3-9); Neutrophils Absolute Manual 0.42 K/mm3 (1.3-6.7); Neutrophils Percent Manual 60 % (46-73); Platelet Estimate Adequate (Adequate); Total Cells Counted 100
[2024-04-23] MEDS: diphenhydrAMINE HCl INJ 50 MG/ML VIAL 25 MG IV PUSH (09:10)
[2024-04-23] MEDS: SODIUM CHLORIDE 0.9% IV 250 ML 10 ML IVPB (09:10)
[2024-04-23] MEDS: FAMOTIDINE 20 MG/2 ML VIAL IV PUSH (09:15)
[2024-04-23] MEDS: dexAMETHasone SOD PHOS INJ 4 MG/ML VIAL 12 MG IV PUSH (09:20)
[2024-04-23] MEDS: ACETAMINOPHEN 325 MG TABLET 650 MG PO (09:26)
[2024-04-23] MEDS: RITUXIMAB ABBS IVPB (09:45)
[2024-04-23] MEDS: SODIUM CHLORIDE 0.9% IVPB (09:45)
[2024-04-23] MEDS: FILGRASTIM-SNDZ 480 MCG/0.8 ML SYRINGE SUB-Q (09:50)
[2024-04-23 10:19] VITALS: BP 121/76; PULSE 79; RESP 14
[2024-04-23 11:44] VITALS: BP 121/77; PULSE 78; RESP 14
[2024-04-23] MEDS: HEPARIN SODIUM LOCK FLUSH 500 UNITS/5 ML SYRINGE IV PUSH (13:34)
[2024-04-23 13:35] VITALS: BP 128/76; PULSE 80; RESP 14; TEMP 36.6; O2SAT 97
--- NOTE | 2024-04-23 13:44 | PC.NURSE ---
Patient tolerated rituximab infusion well. Also received an order to give G-CSF Zarxio injection for [address] Berrios. WBC 0.7. (Dr. Berrios wanted Rituximab infusion still today.). Education on Zarxio injections given. SEE MAR/patient care notes.
== END 2024-04-23 08:32 | disposition home or self-care (01) ==
PROVIDERS: PCP Family Medicine; Visit Provider Internal Medicine Hematology
DX: Z51.11 Encounter for antineoplastic chemotherapy (principal); D70.1 Agranulocytosis secondary to cancer chemotherapy; C91.40 Hairy cell leukemia not having achieved remission
CPT/HCPCS: 36415; 36591; 80053; 85025; 96372; 96375; 96413; 96415; A9270; J1100; J1200; J7030; J7050; Q5101; Q5115

== ENCOUNTER 2024-04-24 08:57 | Outpatient (CLI) | payer OTHER, SELFPAY ==
[2024-04-24] MEDS: FILGRASTIM-SNDZ 480 MCG/0.8 ML SYRINGE SUB-Q (09:10)
[2024-04-24 09:14] VITALS: BP 140/76; PULSE 88; RESP 14; TEMP 36.6; O2SAT 98; BMI 38.1
--- NOTE | 2024-04-24 09:16 | PC.NURSE ---
Patient here for G-CSF(Zarxio) injection. Education given. NO concerns voiced. Injection administered. SEE MAR/patient care notes. Tolerated well.
--- OUTSIDE RECORDS SUMMARY | 2024-04-24 09:41 | XMS_ITS | Clinical Summary ---
Author Organization [facility] Address [address] [place] [address] Care Team Providers Care Refractory Furnace Designer Name Role Phone Everette Salazar MD Primary Care Provider [phone] Allergies Active Allergy Reactions Criticality Noted Date [...] on file Legal Sex Male 5:58 PM MODERN GREEK STUDIES PROFESSOR Gender Identity Not on file Sexual Orientation Not on file Last Filed Vital Signs Vital Sign Reading Time Taken Comments Blood Pressure 124/86 04/23/2020 10:30 AM MODERN GREEK STUDIES PROFESSOR Pulse 64 04/23/2020 10:30 AM MODERN GREEK STUDIES PROFESSOR Temperature 36.5 C (97.7 F) 04/23/2020 10:05 AM MODERN GREEK STUDIES PROFESSOR Respiratory Rate 18 04/23/2020 10:30 AM MODERN GREEK STUDIES PROFESSOR Oxygen Saturation 96% 04/23/2020 10:30 AM MODERN GREEK STUDIES PROFESSOR Inhaled Oxygen Concentration - - Weight 118 kg (260 lb 2.3 oz) 04/21/2020 10:47 A M MODERN GREEK STUDIES PROFESSOR Height 182 cm (5' 11.65 ) 04/21/2020 10:47 AM CS T Body Mass Index 35.62 04/21/2020 10:47 AM MODERN GREEK STUDIES PROFESSOR Plan of Treatment Health Maintenance Due [...] this topic Medical Devices Implanted Type Area Hostage Negotiator Device Identifier Shelf Expiration Date Model / Serial / Lot Iol Adalid Sn60wf - [id number] Implanted:Qty: 1 on 04/23/2020 by Manjit Capellan MD at [facility] Lens Right: Eye ADALID - SURGICAL DIV [id number] 04/28/2023 SN60W / [id number] Description:Dr. Capellan confirm ed IOl Insurance [place] [employer] Care Teams Refractory Furnace Designer Relationship Specialty Start Date End Date Everette Salazar MD [address] [facility] [place] [phone] PCP - General FAMILY PRACTICE 07/25/18
--- OUTSIDE RECORDS SUMMARY | 2024-04-24 09:41 | XMS_ITS | Clinical Summary ---
Author Organization [facility] Address [address] [facility] Attn: Epic Prelude ADT TU WEBB [address] Care Team Providers Care Business Technology Teacher Name Role Phone Unavailable Primary Care Provider Unavailabl e Social History Tobacco Use Types Packs/Day Years Used Date Smoking Tobacco: Never Assessed Sex and Gender Information Value Date Recorded Sex Assigned at Not on file Legal Sex Male 2:42 AM CORPORATE RECRUITER Gender Identity Not on file Sexual Orientation [...]
--- OUTSIDE RECORDS SUMMARY | 2024-04-24 09:41 | XMS_ITS | Encounter Summary ---
Author Organization [facility] Address [address] [place] [address] Care Team Providers Care Research Engineer Marine Equipment Name Role Phone Unavailable Primary Care Provider Unavailabl e Encounter Details Date Type Department Care Team (Late st Contact Info) Description 09/10/2004 Outpatient Historical [facility] Primary Care - [address] [place] [address] Belgica Hernadez MD NO ADDRESS ON FILE Social History Tobacco Use Types Packs/Day Years Used Date Smoking Tobacco: Never Assessed Sex and Gender Information Value Date Recorded Sex Assigned at Not on file Legal Sex Male 2:42 AM CONTRACT NEGOTIATION SPECIALIST Gender Identity Not on file Sexual Orientation Not on file documented as of this encounter Plan of Treatment Not on file documented as of this encounter Visit Diagnoses Not on filedocumented in this encounter
--- OUTSIDE RECORDS SUMMARY | 2024-04-24 09:41 | XMS_ITS | Encounter Summary ---
Author Organization [facility] Address [facility] [place] [address] Care Team Providers Care Auction Block Clerk Name Role Phone Everette Salazar MD Primary Care Provider Encounter Details Date Type Department Care Team (Late st Contact Info) Description 08/05/2018 Abstract SFL CONVERSION [address] [place] [address] , Generic Conversion, Social History Tobacco Use Types Packs/Day Years Used Date Smoking Tobacco: Never Assessed Sex and Gender Information Value Date Recorded Sex Assigned at Not on file Legal Sex Male 5:58 PM BEEF PUSHER Gender Identity Not on file Sexual Orientation Not on file documented as of this encounter Plan of Treatment Not on file documented as of this encounter Visit Diagnoses Not on filedocumented in this encounter Additional Health Concerns Infection Onset Date Last Indicated Resolved Time COVID-19 Rule Out 04/20/2020 04/20/2020 04/21/2020 12:41 PM BEEF PUSHER COVID-19 Rule Out 04/23/2020 04/23/2020 04/23/2020 12:47 PM BEEF PUSHER documented as of this encounter Care Teams Auction Block Clerk Relationship Specialty Start Date End Date Everette Salazar MD [address] [place] [address] PCP - General FAMILY PRACTICE 07/25/18 documented as of this encounter
--- OUTSIDE RECORDS SUMMARY | 2024-04-24 09:41 | XMS_ITS | Encounter Summary ---
Author Organization [facility] Address [address] [place] [address] Care Team Providers Care Scanner Supervisor Name Role Phone Unavailable Primary Care Provider Unavailabl e Encounter Details Date Type Department Care Team (Late st Contact Info) Description 08/12/2004 Outpatient Historical [facility] Primary Care - [address] [place] [address] Belgica Hernadez MD NO ADDRESS ON FILE Social History Tobacco Use Types Packs/Day Years Used Date Smoking Tobacco: Never Assessed Sex and Gender Information Value Date Recorded Sex Assigned at Not on file Legal Sex Male 2:42 AM TRASH COLLECTOR Gender Identity Not on file Sexual Orientation Not on file documented as of this encounter Plan of Treatment Not on file documented as of this encounter Visit Diagnoses Not on filedocumented in this encounter
== END 2024-04-24 08:58 | disposition home or self-care (01) ==
PROVIDERS: PCP Family Medicine; Visit Provider Internal Medicine Hematology
DX: D70.1 Agranulocytosis secondary to cancer chemotherapy (principal); C91.40 Hairy cell leukemia not having achieved remission
CPT/HCPCS: 96372; Q5101

== ENCOUNTER 2024-04-25 08:35 | Outpatient (CLI) | payer OTHER, SELFPAY ==
[2024-04-25 08:43] VITALS: BP 131/70; PULSE 80; RESP 14; TEMP 36.7; O2SAT 97; BMI 38.8
[2024-04-25] MEDS: FILGRASTIM-SNDZ 480 MCG/0.8 ML SYRINGE SUB-Q (08:49)
--- NOTE | 2024-04-25 08:54 | PC.NURSE ---
Patient here for #3 of 3 Zarxio injections. Education given. NO concerns voiced. Injection administered. SEE MAR/patient care notes. Tolerated well.
--- OUTSIDE RECORDS SUMMARY | 2024-04-25 08:59 | XMS_ITS | Clinical Summary ---
Author Organization [facility] Address [address] [facility] Attn: Epic Prelude ADT TU WEBB [address] Care Team Providers Care Slab Installer Name Role Phone Unavailable Primary Care Provider Unavailabl e Social History Tobacco Use Types Packs/Day Years Used Date Smoking Tobacco: Never Assessed Sex and Gender Information Value Date Recorded Sex Assigned at Not on file Legal Sex Male 2:42 AM FLATWORK WASHER Gender Identity Not on file Sexual Orientation [...]
--- OUTSIDE RECORDS SUMMARY | 2024-04-25 08:59 | XMS_ITS | Encounter Summary ---
Author Organization [facility] Address [facility] [place] [address] Care Team Providers Care Technician Support Engineer Name Role Phone Everette Salazar MD Primary Care Provider [phone] Encounter Details Date Type Department Care Team (Late st Contact Info) Description 08/05/2018 Abstract SFL CONVERSION [address] [place] [address] , Generic Conversion, Social History Tobacco Use Types Packs/Day Years Used Date Smoking Tobacco: Never Assessed Sex and Gender Information Value Date Recorded Sex Assigned at Not on file Legal Sex Male 5:58 PM TABLE GAMES FLOOR SUPERVISOR Gender Identity Not on file Sexual Orientation Not on file documented as of this encounter Plan of Treatment Not on file documented as of this encounter Visit Diagnoses Not on filedocumented in this encounter Additional Health Concerns Infection Onset Date Last Indicated Resolved Time COVID-19 Rule Out 04/20/2020 04/20/2020 04/21/2020 12:41 PM TABLE GAMES FLOOR SUPERVISOR COVID-19 Rule Out 04/23/2020 04/23/2020 04/23/2020 12:47 PM TABLE GAMES FLOOR SUPERVISOR documented as of this encounter Care Teams Technician Support Engineer Relationship Specialty Start Date End Date Everette Salazar MD [address] [place] [address] PCP - General FAMILY PRACTICE 07/25/18 documented as of this encounter
--- OUTSIDE RECORDS SUMMARY | 2024-04-25 09:00 | XMS_ITS | Clinical Summary ---
Author Organization [facility] Address [address] [place] [address] Care Team Providers Care Clerical Specialist Name Role Phone Everette Salazar MD Primary Care Provider [phone] Allergies Active Allergy Reactions Criticality Noted Date [...] on file Legal Sex Male 5:58 PM USED CAR LOT PORTER Gender Identity Not on file Sexual Orientation Not on file Last Filed Vital Signs Vital Sign Reading Time Taken Comments Blood Pressure 124/86 04/23/2020 10:30 AM USED CAR LOT PORTER Pulse 64 04/23/2020 10:30 AM USED CAR LOT PORTER Temperature 36.5 C (97.7 F) 04/23/2020 10:05 AM USED CAR LOT PORTER Respiratory Rate 18 04/23/2020 10:30 AM USED CAR LOT PORTER Oxygen Saturation 96% 04/23/2020 10:30 AM USED CAR LOT PORTER Inhaled Oxygen Concentration - - Weight 118 kg (260 lb 2.3 oz) 04/21/2020 10:47 A M USED CAR LOT PORTER Height 182 cm (5' 11.65 ) 04/21/2020 10:47 AM CS T Body Mass Index 35.62 04/21/2020 10:47 AM USED CAR LOT PORTER Plan of Treatment Health Maintenance Due Date [...] this topic Medical Devices Implanted Type Area Dean Of Education Device Identifier Shelf Expiration Date Model / Serial / Lot Iol Adalid [id number] - [id number] Implanted:Qty: 1 on 04/23/2020 by Manjit Capellan MD at [facility] Lens Right: Eye ADALID - SURGICAL DIV [id number] 04/28/2023 [id number] / [id number] Description:Dr. Capellan confirm ed IOl Insurance [place] Care Teams Clerical Specialist Relationship Specialty Start Date End Date Everette Salazar MD [address] [place] [address] PCP - General FAMILY PRACTICE 07/25/18
--- OUTSIDE RECORDS SUMMARY | 2024-04-25 09:00 | XMS_ITS | Encounter Summary ---
Author Organization [facility] Address [address] [place] [address] Care Team Providers Care Straw Hat Washer Operator Name Role Phone Unavailable Primary Care Provider Unavailabl e Encounter Details Date Type Department Care Team (Late st Contact Info) Description 09/10/2004 Outpatient Historical [facility] Primary Care - [address] [place] [address] Belgica Hernadez MD NO ADDRESS ON FILE Social History Tobacco Use Types Packs/Day Years Used Date Smoking Tobacco: Never Assessed Sex and Gender Information Value Date Recorded Sex Assigned at Not on file Legal Sex Male 2:42 AM LABORATORY SAMPLE CARRIER Gender Identity Not on file Sexual Orientation Not on file documented as of this encounter Plan of Treatment Not on file documented as of this encounter Visit Diagnoses Not on filedocumented in this encounter
--- OUTSIDE RECORDS SUMMARY | 2024-04-25 09:00 | XMS_ITS | Encounter Summary ---
Author Organization [facility] Address [address] [place] [address] Care Team Providers Care Fire Sprinkler Inspector Name Role Phone Unavailable Primary Care Provider Unavailabl e Encounter Details Date Type Department Care Team (Late st Contact Info) Description 08/12/2004 Outpatient Historical [facility] Primary Care - [address] [place] [address] Belgica Hernadez MD NO ADDRESS ON FILE Social History Tobacco Use Types Packs/Day Years Used Date Smoking Tobacco: Never Assessed Sex and Gender Information Value Date Recorded Sex Assigned at Not on file Legal Sex Male 2:42 AM SOIL CONSERVATIONIST Gender Identity Not on file Sexual Orientation Not on file documented as of this encounter Plan of Treatment Not on file documented as of this encounter Visit Diagnoses Not on filedocumented in this encounter
== END 2024-04-25 08:36 | disposition home or self-care (01) ==
PROVIDERS: PCP Family Medicine; Visit Provider Internal Medicine Hematology
DX: D70.1 Agranulocytosis secondary to cancer chemotherapy (principal); C91.40 Hairy cell leukemia not having achieved remission
CPT/HCPCS: 96372; Q5101

== ENCOUNTER 2024-05-07 08:38 | Outpatient (CLI) | payer OTHER, SELFPAY ==
[2024-05-07 08:40] VITALS: BP 122/73; PULSE 78; RESP 14; TEMP 36.6; O2SAT 97; BMI 37.9
[2024-05-07 09:02] LABS: Hematocrit 29.6 % (40.0-54.0); Hemoglobin 9.5 g/dL (14.0-18.0); Mean Corpuscular HGB Conc 32.1 g/dL (32-36); Mean Corpuscular Hemoglobin 32.6 pg (27.0-31.0); Mean Corpuscular Volume 101.7 fL (78.0-102.0); Mean Platelet Volume 9.5 fl (8.7-11.0); Platelet Count Result 179 K/mm3 (150-420); Red Blood Count 2.91 M/mm3 (4.70-6.10); Red Cell Distribution Width 16.4 % (11.6-14.4); White Blood Count 3.2 K/mm3 (4.8-10.8)
[2024-05-07 09:12] LABS: Band Neutrophils Percent 0 % (0-6); Eosinophils Absolute Manual 0.12 K/mm3 (0.02-0.50); Eosinophils Percent Manual 4 % (1-6); Lymphocytes Absolute Manual 0.28 K/mm3 (1.1-4.5); Lymphocytes Percent Manual 9 % (18-44); Monocytes Absolute Manual 0.12 K/mm3 (0.1-0.90); Monocytes Percent Manual 4 % (3-9); Myelocytes Percent 3 %; Neutrophils Absolute Manual 2.56 K/mm3 (1.3-6.7); Neutrophils Percent Manual 80 % (46-73); Nucleated Red Blood Cells 2 %; Platelet Estimate Adequate (Adequate); Total Cells Counted 100
--- OUTSIDE RECORDS SUMMARY | 2024-05-07 09:15 | XMS_ITS | Clinical Summary ---
Author Organization [facility] Address [address] [place] [address] Care Team Providers Care Civil Cadd Technician Name Role Phone Everette Salazar MD Primary Care Provider [phone] Allergies Active Allergy Reactions Criticality Noted Date [...] on file Legal Sex Male 5:58 PM LIFE INSURANCE SALES Gender Identity Not on file Sexual Orientation Not on file Last Filed Vital Signs Vital Sign Reading Time Taken Comments Blood Pressure 124/86 04/23/2020 10:30 AM LIFE INSURANCE SALES Pulse 64 04/23/2020 10:30 AM LIFE INSURANCE SALES Temperature 36.5 C (97.7 F) 04/23/2020 10:05 AM LIFE INSURANCE SALES Respiratory Rate 18 04/23/2020 10:30 AM LIFE INSURANCE SALES Oxygen Saturation 96% 04/23/2020 10:30 AM LIFE INSURANCE SALES Inhaled Oxygen Concentration - - Weight 118 kg (260 lb 2.3 oz) 04/21/2020 10:47 A M LIFE INSURANCE SALES Height 182 cm (5' 11.65 ) 04/21/2020 10:47 AM CS T Body Mass Index 35.62 04/21/2020 10:47 AM LIFE INSURANCE SALES Plan of Treatment Health Maintenance Due Date [...] this topic Medical Devices Implanted Type Area Scrap Preparer Device Identifier Shelf Expiration Date Model / Serial / Lot Iol Adalid [id number] - [id number] Implanted:Qty: 1 on 04/23/2020 by Manjit Capellan MD at [facility] Lens Right: Eye ADALID - SURGICAL DIV [id number] 04/28/2023 [id number] / [id number] Description:Dr. Capellan confirm ed IOl Insurance [place] Care Teams Civil Cadd Technician Relationship Specialty Start Date End Date Everette Salazar MD [address] [place] [address] PCP - General FAMILY PRACTICE 07/25/18
--- OUTSIDE RECORDS SUMMARY | 2024-05-07 09:15 | XMS_ITS | Clinical Summary ---
Author Organization [facility] Address [address] [facility] Attn: Epic Prelude ADT TU WEBB [address] Care Team Providers Care Business Division Chair Name Role Phone Unavailable Primary Care Provider Unavailabl e Social History Tobacco Use Types Packs/Day Years Used Date Smoking Tobacco: Never Assessed Sex and Gender Information Value Date Recorded Sex Assigned at Not on file Legal Sex Male 2:42 AM SALESPERSON NECKTIES Gender Identity Not on file Sexual Orientation [...]
--- OUTSIDE RECORDS SUMMARY | 2024-05-07 09:15 | XMS_ITS | Encounter Summary ---
Author Organization [facility] Address [facility] [place] [address] Care Team Providers Care Graphics Production Specialist Name Role Phone Everette Salazar MD Primary Care Provider [phone] Encounter Details Date Type Department Care Team (Late st Contact Info) Description 08/05/2018 Abstract SFL CONVERSION [address] [place] [address] , Generic Conversion, Social History Tobacco Use Types Packs/Day Years Used Date Smoking Tobacco: Never Assessed Sex and Gender Information Value Date Recorded Sex Assigned at Not on file Legal Sex Male 5:58 PM WORM PICKER Gender Identity Not on file Sexual Orientation Not on file documented as of this encounter Plan of Treatment Not on file documented as of this encounter Visit Diagnoses Not on filedocumented in this encounter Additional Health Concerns Infection Onset Date Last Indicated Resolved Time COVID-19 Rule Out 04/20/2020 04/20/2020 04/21/2020 12:41 PM WORM PICKER COVID-19 Rule Out 04/23/2020 04/23/2020 04/23/2020 12:47 PM WORM PICKER documented as of this encounter Care Teams Graphics Production Specialist Relationship Specialty Start Date End Date Everette Salazar MD [address] [place] [address] PCP - General FAMILY PRACTICE 07/25/18 documented as of this encounter
--- OUTSIDE RECORDS SUMMARY | 2024-05-07 09:15 | XMS_ITS | Encounter Summary ---
Author Organization [facility] Address [address] [place] [address] Care Team Providers Care Attendant Lodging Facilities Name Role Phone Unavailable Primary Care Provider Unavailabl e Encounter Details Date Type Department Care Team (Late st Contact Info) Description 08/12/2004 Outpatient Historical [facility] Primary Care - [address] [place] [address] Belgica Hernadez MD NO ADDRESS ON FILE Social History Tobacco Use Types Packs/Day Years Used Date Smoking Tobacco: Never Assessed Sex and Gender Information Value Date Recorded Sex Assigned at Not on file Legal Sex Male 2:42 AM WELCOME HOSTESS Gender Identity Not on file Sexual Orientation Not on file documented as of this encounter Plan of Treatment Not on file documented as of this encounter Visit Diagnoses Not on filedocumented in this encounter
--- OUTSIDE RECORDS SUMMARY | 2024-05-07 09:15 | XMS_ITS | Encounter Summary ---
Author Organization [facility] Address [address] [place] [address] Care Team Providers Care Rehabilitation Program Coordinator Name Role Phone Unavailable Primary Care Provider Unavailabl e Encounter Details Date Type Department Care Team (Late st Contact Info) Description 09/10/2004 Outpatient Historical [facility] Primary Care - [address] [place] [address] Belgica Hernadez MD NO ADDRESS ON FILE Social History Tobacco Use Types Packs/Day Years Used Date Smoking Tobacco: Never Assessed Sex and Gender Information Value Date Recorded Sex Assigned at Not on file Legal Sex Male 2:42 AM MOBILE APPLICATION ENGINEER Gender Identity Not on file Sexual Orientation Not on file documented as of this encounter Plan of Treatment Not on file documented as of this encounter Visit Diagnoses Not on filedocumented in this encounter
[2024-05-07 09:17] LABS: Alanine Aminotransferase 37 U/L (16-63); Albumin Level 3.5 g/dL (3.4-5.0); Alkaline Phosphatase 168 U/L (46-116); Anion Gap 10 mmol/L (4-12); Aspartate Amino Transferase 22 U/L (15-37); Bilirubin,Total 0.2 mg/dL (0.00-1.00); Blood Urea Nitrogen 14 mg/dL (7-18); Calcium 8.3 mg/dL (8.5-10.1); Carbon Dioxide 27 mmol/L (21-32); Chloride 106 mmol/L (98-108); Estimated CRCL calculation 133 ml/min; Estimated Glomerular Filt Rate > 60; Glucose 192 mg/dL (70-99); Lactate Dehydrogenase 178 U/L (85-227); Osmolality Calculated 301 mOsm/kg (285-295); Phosphorus 4.6 mg/dL (2.6-4.7); Potassium 3.2 mmol/L (3.5-5.1); Sodium 143 mmol/L (136-145); Total Protein 6.8 g/dL (6.4-8.2); Uric Acid 2.9 mg/dL (3.5-7.2)
[2024-05-07] MEDS: FAMOTIDINE 20 MG/2 ML VIAL IV PUSH (09:30)
[2024-05-07] MEDS: SODIUM CHLORIDE 0.9% IV 250 ML 10 ML IVPB (09:30)
[2024-05-07] MEDS: diphenhydrAMINE HCl INJ 50 MG/ML VIAL 25 MG IV PUSH (09:35)
[2024-05-07] MEDS: ACETAMINOPHEN 325 MG TABLET 650 MG PO (09:35)
[2024-05-07] MEDS: dexAMETHasone SOD PHOS INJ 4 MG/ML VIAL 12 MG IV PUSH (09:37)
[2024-05-07] MEDS: SODIUM CHLORIDE 0.9% IVPB (09:55)
[2024-05-07] MEDS: RITUXIMAB ABBS IVPB (09:55)
[2024-05-07 10:25] VITALS: BP 125/70; PULSE 72; RESP 14; O2SAT 97
[2024-05-07 12:05] VITALS: BP 130/70; PULSE 78; RESP 14; TEMP 36.4; O2SAT 97
[2024-05-07] MEDS: HEPARIN SODIUM LOCK FLUSH 500 UNITS/5 ML SYRINGE IV PUSH (13:27)
[2024-05-07 13:41] VITALS: BP 138/79; PULSE 80; RESP 14; TEMP 36.7; O2SAT 97
--- NOTE | 2024-05-07 13:58 | PC.NURSE ---
Patient tolerated treatment well. See MAR/patient care notes.
== END 2024-05-07 08:39 | disposition home or self-care (01) ==
PROVIDERS: PCP Family Medicine; Visit Provider Internal Medicine Hematology
DX: Z51.11 Encounter for antineoplastic chemotherapy (principal); C91.40 Hairy cell leukemia not having achieved remission
CPT/HCPCS: 36415; 36591; 80053; 83615; 84100; 84550; 85025; 96375; 96413; 96415; A9270; J1100; J1200; J7030; J7050; Q5115

== ENCOUNTER 2024-05-15 08:43 | Outpatient (CLI) | payer OTHER, SELFPAY ==
[2024-05-15 08:48] VITALS: BMI 38.0
[2024-05-15 09:04] VITALS: BP 133/80; PULSE 78; RESP 14; TEMP 36.6; O2SAT 96
[2024-05-15 09:07] LABS: Hematocrit 34.1 % (40.0-54.0); Hemoglobin 10.7 g/dL (14.0-18.0); Mean Corpuscular HGB Conc 31.4 g/dL (32-36); Mean Corpuscular Hemoglobin 31.8 pg (27.0-31.0); Mean Corpuscular Volume 101.2 fL (78.0-102.0); Mean Platelet Volume 9.6 fl (8.7-11.0); Platelet Count Result 224 K/mm3 (150-420); Red Blood Count 3.37 M/mm3 (4.70-6.10); Red Cell Distribution Width 16.2 % (11.6-14.4); White Blood Count 2.4 K/mm3 (4.8-10.8)
--- OUTSIDE RECORDS SUMMARY | 2024-05-15 09:07 | XMS_ITS | Clinical Summary ---
Author Organization [facility] Address [address] [facility] Attn: Epic Prelude ADT TU WEBB [address] Care Team Providers Care Rip Saw Operator Name Role Phone Unavailable Primary Care Provider Unavailabl e Social History Tobacco Use Types Packs/Day Years Used Date Smoking Tobacco: Never Assessed Sex and Gender Information Value Date Recorded Sex Assigned at Not on file Legal Sex Male 2:42 AM VIDEO CONTROL OPERATOR Gender Identity Not on file Sexual Orientation [...]
--- OUTSIDE RECORDS SUMMARY | 2024-05-15 09:07 | XMS_ITS | Encounter Summary ---
Author Organization [facility] Address [address] [place] [address] Care Team Providers Care Job Putter Up And Ticket Preparer Name Role Phone Unavailable Primary Care Provider Unavailabl e Encounter Details Date Type Department Care Team (Late st Contact Info) Description 08/12/2004 Outpatient Historical [facility] Primary Care - [address] [place] [address] Belgica Hernadez MD NO ADDRESS ON FILE Social History Tobacco Use Types Packs/Day Years Used Date Smoking Tobacco: Never Assessed Sex and Gender Information Value Date Recorded Sex Assigned at Not on file Legal Sex Male 2:42 AM ANGULAR JS DEVELOPER Gender Identity Not on file Sexual Orientation Not on file documented as of this encounter Plan of Treatment Not on file documented as of this encounter Visit Diagnoses Not on filedocumented in this encounter
--- OUTSIDE RECORDS SUMMARY | 2024-05-15 09:07 | XMS_ITS | Encounter Summary ---
Author Organization [facility] Address [address] [place] [address] Care Team Providers Care Vegetable Thinner Name Role Phone Unavailable Primary Care Provider Unavailabl e Encounter Details Date Type Department Care Team (Late st Contact Info) Description 09/10/2004 Outpatient Historical [facility] Primary Care - [address] [place] [address] Belgica Hernadez MD NO ADDRESS ON FILE Social History Tobacco Use Types Packs/Day Years Used Date Smoking Tobacco: Never Assessed Sex and Gender Information Value Date Recorded Sex Assigned at Not on file Legal Sex Male 2:42 AM LOOP TACKER Gender Identity Not on file Sexual Orientation Not on file documented as of this encounter Plan of Treatment Not on file documented as of this encounter Visit Diagnoses Not on filedocumented in this encounter
--- OUTSIDE RECORDS SUMMARY | 2024-05-15 09:07 | XMS_ITS | Encounter Summary ---
Author Organization [facility] Address Counts include [address] at [address] [facility] [place] [address] Care Team Providers Care Electric Detector Operator Name Role Phone Everette Salazar MD Primary Care Provider [phone] Encounter Details Date Type Department Care Team (Late st Contact Info) Description 08/05/2018 Abstract SFL CONVERSION [address] [place] [address] , Generic Conversion, Social History Tobacco Use Types Packs/Day Years Used Date Smoking Tobacco: Never Assessed Sex and Gender Information Value Date Recorded Sex Assigned at Not on file Legal Sex Male 5:58 PM SENIOR PROGRAM PLANNER Gender Identity Not on file Sexual Orientation Not on file documented as of this encounter Plan of Treatment Not on file documented as of this encounter Visit Diagnoses Not on filedocumented in this encounter Additional Health Concerns Infection Onset Date Last Indicated Resolved Time COVID-19 Rule Out 04/20/2020 04/20/2020 04/21/2020 12:41 PM SENIOR PROGRAM PLANNER COVID-19 Rule Out 04/23/2020 04/23/2020 04/23/2020 12:47 PM SENIOR PROGRAM PLANNER documented as of this encounter Care Teams Electric Detector Operator Relationship Specialty Start Date End Date Everette Salazar MD [address] [place] [address] PCP - General FAMILY PRACTICE 07/25/18 documented as of this encounter
--- OUTSIDE RECORDS SUMMARY | 2024-05-15 09:07 | XMS_ITS | Clinical Summary ---
Author Organization [facility] Address [address] [place] [address] Care Team Providers Care Retail Supervisor Name Role Phone Everette Salazar MD Primary Care Provider [phone] Allergies Active Allergy Reactions Criticality Noted Date [...] on file Legal Sex Male 5:58 PM FINAL ASSEMBLY AND PACKING SUPERVISOR Gender Identity Not on file Sexual Orientation Not on file Last Filed Vital Signs Vital Sign Reading Time Taken Comments Blood Pressure 124/86 04/23/2020 10:30 AM FINAL ASSEMBLY AND PACKING SUPERVISOR Pulse 64 04/23/2020 10:30 AM FINAL ASSEMBLY AND PACKING SUPERVISOR Temperature 36.5 C (97.7 F) 04/23/2020 10:05 AM FINAL ASSEMBLY AND PACKING SUPERVISOR Respiratory Rate 18 04/23/2020 10:30 AM FINAL ASSEMBLY AND PACKING SUPERVISOR Oxygen Saturation 96% 04/23/2020 10:30 AM FINAL ASSEMBLY AND PACKING SUPERVISOR Inhaled Oxygen Concentration - - Weight 118 kg (260 lb 2.3 oz) 04/21/2020 10:47 A M FINAL ASSEMBLY AND PACKING SUPERVISOR Height 182 cm (5' 11.65 ) 04/21/2020 10:47 AM CS T Body Mass Index 35.62 04/21/2020 10:47 AM FINAL ASSEMBLY AND PACKING SUPERVISOR Plan of Treatment Health Maintenance Due Date [...] this topic Medical Devices Implanted Type Area Thermodynamics Engineer Device Identifier Shelf Expiration Date Model / Serial / Lot Iol Adalid Sn60wf - [id number] Implanted:Qty: 1 on 04/23/2020 by Manjit Capellan MD at [facility] Lens Right: Eye ADALID - SURGICAL DIV [id number] 04/28/2023 [id number] / [id number] Description:Dr. Capellan confirm ed IOl Insurance [place] Care Teams Retail Supervisor Relationship Specialty Start Date End Date Everette Salazar MD [address] [facility] [place] [phone] PCP - General FAMILY PRACTICE 07/25/18
[2024-05-15 09:27] LABS: Band Neutrophils Percent 0 % (0-6); Eosinophils Absolute Manual 0.21 K/mm3 (0.02-0.50); Eosinophils Percent Manual 9 % (1-6); Lymphocytes Absolute Manual 0.26 K/mm3 (1.1-4.5); Lymphocytes Percent Manual 11 % (18-44); Monocytes Absolute Manual 0.45 K/mm3 (0.1-0.90); Monocytes Percent Manual 19 % (3-9); Neutrophils Absolute Manual 1.46 K/mm3 (1.3-6.7); Neutrophils Percent Manual 61 % (46-73); Total Cells Counted 100
[2024-05-15 09:28] LABS: Platelet Estimate Adequate (Adequate)
[2024-05-15] MEDS: SODIUM CHLORIDE 0.9% IV 250 ML 10 ML IVPB (09:30)
[2024-05-15] MEDS: diphenhydrAMINE HCl INJ 50 MG/ML VIAL 25 MG IV PUSH (09:30)
[2024-05-15 09:32] LABS: Alanine Aminotransferase 45 U/L (16-63); Albumin Level 3.9 g/dL (3.4-5.0); Alkaline Phosphatase 204 U/L (46-116); Anion Gap 8 mmol/L (4-12); Aspartate Amino Transferase 20 U/L (15-37); Bilirubin,Total 0.2 mg/dL (0.00-1.00); Blood Urea Nitrogen 8 mg/dL (7-18); Calcium 9.1 mg/dL (8.5-10.1); Carbon Dioxide 29 mmol/L (21-32); Chloride 104 mmol/L (98-108); Estimated CRCL calculation 137 ml/min; Estimated Glomerular Filt Rate > 60; Glucose 108 mg/dL (70-99); Osmolality Calculated 291 mOsm/kg (285-295); Potassium 3.5 mmol/L (3.5-5.1); Sodium 141 mmol/L (136-145); Total Protein 7.4 g/dL (6.4-8.2)
[2024-05-15] MEDS: FAMOTIDINE 20 MG/2 ML VIAL IV PUSH (09:38)
[2024-05-15] MEDS: dexAMETHasone SOD PHOS INJ 4 MG/ML VIAL 12 MG IV PUSH (09:40)
[2024-05-15] MEDS: ACETAMINOPHEN 325 MG TABLET 650 MG PO (09:47)
[2024-05-15] MEDS: SODIUM CHLORIDE 0.9% IVPB (10:00)
[2024-05-15] MEDS: RITUXIMAB ABBS IVPB (10:00)
[2024-05-15 10:30] VITALS: BP 132/70; PULSE 78; RESP 14
[2024-05-15] MEDS: HEPARIN SODIUM LOCK FLUSH 500 UNITS/5 ML SYRINGE IV PUSH (13:35)
[2024-05-15 13:48] VITALS: BP 142/79; PULSE 78; RESP 14; TEMP 36.6; O2SAT 96
--- NOTE | 2024-05-15 13:50 | PC.NURSE ---
Patient tolerated Rituximab infusion well. SEE MAR/patient care notes.
== END 2024-05-15 08:44 | disposition home or self-care (01) ==
PROVIDERS: PCP Family Medicine; Visit Provider Internal Medicine Hematology
DX: Z51.11 Encounter for antineoplastic chemotherapy (principal); C91.40 Hairy cell leukemia not having achieved remission
CPT/HCPCS: 36415; 36591; 80053; 85025; 96375; 96413; 96415; A9270; J1100; J1200; J7030; J7050; Q5115

== ENCOUNTER 2024-05-21 08:49 | Outpatient (CLI) | payer OTHER, SELFPAY ==
[2024-05-21 08:56] VITALS: BMI 38.1
[2024-05-21 09:10] LABS: Basophils Absolute Auto 0.01 K/mm3 (0.00-0.10); Basophils Percent Auto 0.3 % (0.0-1.0); Eosinophils Percent Auto 7.6 % (1.0-6.0); Hematocrit 35.2 % (40.0-54.0); Hemoglobin 11.3 g/dL (14.0-18.0); Immature Granulocyte Absolute 0.04 K/mm3 (0.00-0.00); Lymphocytes Absolute Auto 0.34 K/mm3 (1.10-4.50); Lymphocytes Percent Auto 8.6 % (18.0-42.0); Mean Corpuscular HGB Conc 32.1 g/dL (32-36); Mean Corpuscular Volume 99.7 fL (78.0-102.0); Mean Platelet Volume 9.5 fl (8.7-11.0); Monocytes Absolute Auto 0.38 K/mm3 (0.10-0.90); Monocytes Percent Auto 9.6 % (2.0-11.0); Neutrophils Absolute Auto 2.89 K/mm3 (1.70-7.20); Neutrophils Percent Auto 72.9 % (50.0-70.0); Platelet Count Result 182 K/mm3 (150-420); Red Blood Count 3.53 M/mm3 (4.70-6.10); Red Cell Distribution Width 15.8 % (11.6-14.4)
[2024-05-21 09:19] VITALS: BP 140/73; PULSE 78; RESP 14; TEMP 36.6; O2SAT 97
[2024-05-21 09:25] LABS: Alanine Aminotransferase 42 U/L (16-63); Albumin Level 3.8 g/dL (3.4-5.0); Alkaline Phosphatase 187 U/L (46-116); Anion Gap 12 mmol/L (4-12); Aspartate Amino Transferase 18 U/L (15-37); Bilirubin,Total 0.2 mg/dL (0.00-1.00); Blood Urea Nitrogen 9 mg/dL (7-18); Calcium 8.5 mg/dL (8.5-10.1); Carbon Dioxide 27 mmol/L (21-32); Chloride 104 mmol/L (98-108); Estimated CRCL calculation 124 ml/min; Estimated Glomerular Filt Rate > 60; Glucose 162 mg/dL (70-99); Lactate Dehydrogenase 191 U/L (85-227); Osmolality Calculated 298 mOsm/kg (285-295); Phosphorus 3.8 mg/dL (2.6-4.7); Potassium 3.2 mmol/L (3.5-5.1); Sodium 143 mmol/L (136-145); Total Protein 7.2 g/dL (6.4-8.2)
--- OUTSIDE RECORDS SUMMARY | 2024-05-21 09:32 | XMS_ITS | Clinical Summary ---
Author Organization [facility] Address [address] [facility] Attn: Epic Prelude ADT TU WEBB [address] Care Team Providers Care Integration Software Developer Name Role Phone Unavailable Primary Care Provider Unavailabl e Social History Tobacco Use Types Packs/Day Years Used Date Smoking Tobacco: Never Assessed Sex and Gender Information Value Date Recorded Sex Assigned at Not on file Legal Sex Male 2:42 AM CRACKER OFF Gender Identity Not on file Sexual Orientation [...]
--- OUTSIDE RECORDS SUMMARY | 2024-05-21 09:32 | XMS_ITS | Encounter Summary ---
Author Organization [facility] Address [address] [place] [address] Care Team Providers Care Lens Grinding Machine Operator Name Role Phone Unavailable Primary Care Provider Unavailabl e Encounter Details Date Type Department Care Team (Late st Contact Info) Description 08/12/2004 Outpatient Historical [facility] Primary Care - [address] [place] [address] Belgica Hernadez MD NO ADDRESS ON FILE Social History Tobacco Use Types Packs/Day Years Used Date Smoking Tobacco: Never Assessed Sex and Gender Information Value Date Recorded Sex Assigned at Not on file Legal Sex Male 2:42 AM PHYSICAL THERAPY INSTRUCTOR Gender Identity Not on file Sexual Orientation Not on file documented as of this encounter Plan of Treatment Not on file documented as of this encounter Visit Diagnoses Not on filedocumented in this encounter
--- OUTSIDE RECORDS SUMMARY | 2024-05-21 09:32 | XMS_ITS | Encounter Summary ---
Author Organization [facility] Address [address] [place] [address] Care Team Providers Care Llama Farmer Name Role Phone Unavailable Primary Care Provider Unavailabl e Encounter Details Date Type Department Care Team (Late st Contact Info) Description 09/10/2004 Outpatient Historical [facility] Primary Care - [address] [place] [address] Belgica Hernadez MD NO ADDRESS ON FILE Social History Tobacco Use Types Packs/Day Years Used Date Smoking Tobacco: Never Assessed Sex and Gender Information Value Date Recorded Sex Assigned at Not on file Legal Sex Male 2:42 AM THREAD SPINNER Gender Identity Not on file Sexual Orientation Not on file documented as of this encounter Plan of Treatment Not on file documented as of this encounter Visit Diagnoses Not on filedocumented in this encounter
--- OUTSIDE RECORDS SUMMARY | 2024-05-21 09:32 | XMS_ITS | Encounter Summary ---
Author Organization [facility] Address [facility] [place] [address] Care Team Providers Care Quality Associate Name Role Phone Everette Salazar MD Primary Care Provider [phone] Encounter Details Date Type Department Care Team (Late st Contact Info) Description 08/05/2018 Abstract SFL CONVERSION [address] [place] [address] , Generic Conversion, Social History Tobacco Use Types Packs/Day Years Used Date Smoking Tobacco: Never Assessed Sex and Gender Information Value Date Recorded Sex Assigned at Not on file Legal Sex Male 5:58 PM BASKETBALLS AND FOOTBALLS REVERSER Gender Identity Not on file Sexual Orientation Not on file documented as of this encounter Plan of Treatment Not on file documented as of this encounter Visit Diagnoses Not on filedocumented in this encounter Additional Health Concerns Infection Onset Date Last Indicated Resolved Time COVID-19 Rule Out 04/20/2020 04/20/2020 04/21/2020 12:41 PM BASKETBALLS AND FOOTBALLS REVERSER COVID-19 Rule Out 04/23/2020 04/23/2020 04/23/2020 12:47 PM BASKETBALLS AND FOOTBALLS REVERSER documented as of this encounter Care Teams Quality Associate Relationship Specialty Start Date End Date Everette Salazar MD [address] [place] [address] PCP - General FAMILY PRACTICE 07/25/18 documented as of this encounter
--- OUTSIDE RECORDS SUMMARY | 2024-05-21 09:32 | XMS_ITS | Clinical Summary ---
Author Organization [facility] Address [address] [place] [address] Care Team Providers Care Tree Climber Name Role Phone Everette Salazar MD Primary Care Provider [phone] Allergies Active Allergy Reactions Criticality Noted Date [...] on file Legal Sex Male 5:58 PM MANAGER INTERN Gender Identity Not on file Sexual Orientation Not on file Last Filed Vital Signs Vital Sign Reading Time Taken Comments Blood Pressure 124/86 04/23/2020 10:30 AM MANAGER INTERN Pulse 64 04/23/2020 10:30 AM MANAGER INTERN Temperature 36.5 C (97.7 F) 04/23/2020 10:05 AM MANAGER INTERN Respiratory Rate 18 04/23/2020 10:30 AM MANAGER INTERN Oxygen Saturation 96% 04/23/2020 10:30 AM MANAGER INTERN Inhaled Oxygen Concentration - - Weight 118 kg (260 lb 2.3 oz) 04/21/2020 10:47 A M MANAGER INTERN Height 182 cm (5' 11.65 ) 04/21/2020 10:47 AM CS T Body Mass Index 35.62 04/21/2020 10:47 AM MANAGER INTERN Plan of Treatment Health Maintenance Due Date [...] this topic Medical Devices Implanted Type Area Wireworker Supervisor Device Identifier Shelf Expiration Date Model / Serial / Lot Iol Adalid Sn60wf - [id number] Implanted:Qty: 1 on 04/23/2020 by Manjit Capellan MD at [facility] Lens Right: Eye ADALID - SURGICAL DIV [id number] 04/28/2023 [id number] / [id number] Description:Dr. Capellan confirm ed IOl Insurance [place] Care Teams Tree Climber Relationship Specialty Start Date End Date Everette Salazar MD [address] [facility] [place] [address] PCP - General FAMILY PRACTICE 07/25/18
[2024-05-21] MEDS: FAMOTIDINE 20 MG/2 ML VIAL IV PUSH (09:36)
[2024-05-21] MEDS: diphenhydrAMINE HCl INJ 50 MG/ML VIAL 25 MG IV PUSH (09:40)
[2024-05-21] MEDS: dexAMETHasone SOD PHOS INJ 4 MG/ML VIAL 12 MG IV PUSH (09:42)
[2024-05-21] MEDS: ACETAMINOPHEN 325 MG TABLET 650 MG PO (09:45)
[2024-05-21] MEDS: SODIUM CHLORIDE 0.9% IV 250 ML 10 ML IVPB (09:50)
[2024-05-21] MEDS: SODIUM CHLORIDE 0.9% IVPB (10:11)
[2024-05-21] MEDS: RITUXIMAB ABBS IVPB (10:11)
[2024-05-21 10:42] VITALS: BP 136/75; PULSE 78; RESP 14; TEMP 36.5; O2SAT 96
[2024-05-21] MEDS: HEPARIN SODIUM LOCK FLUSH 500 UNITS/5 ML SYRINGE IV PUSH (14:10)
[2024-05-21 14:15] VITALS: BP 132/70; PULSE 72; RESP 14; TEMP 36.4; O2SAT 97
--- NOTE | 2024-05-21 14:42 | PC.NURSE ---
Patient tolerated Rituximab infusion well. SEE MAR/patient care notes.
== END 2024-05-21 08:50 | disposition home or self-care (01) ==
PROVIDERS: PCP Family Medicine; Visit Provider Internal Medicine Hematology
DX: Z51.11 Encounter for antineoplastic chemotherapy (principal); C91.40 Hairy cell leukemia not having achieved remission
CPT/HCPCS: 36415; 36591; 80053; 83615; 84100; 84550; 85025; 96375; 96413; 96415; A9270; J1100; J1200; J7030; J7050; Q5115

== ENCOUNTER 2024-05-28 08:40 | Outpatient (CLI) | payer OTHER, SELFPAY ==
[2024-05-28 08:45] VITALS: BMI 38.0
--- OUTSIDE RECORDS SUMMARY | 2024-05-28 09:06 | XMS_ITS | Encounter Summary ---
Author Organization [facility] Address [address] [place] [address] Care Team Providers Care Coverer Name Role Phone Unavailable Primary Care Provider Unavailabl e Encounter Details Date Type Department Care Team (Late st Contact Info) Description 08/12/2004 Outpatient Historical [facility] Primary Care - [address] [place] [address] Belgica Hernadez MD NO ADDRESS ON FILE Social History Tobacco Use Types Packs/Day Years Used Date Smoking Tobacco: Never Assessed Sex and Gender Information Value Date Recorded Sex Assigned at Not on file Legal Sex Male 2:42 AM STATISTICAL ENGINEER Gender Identity Not on file Sexual Orientation Not on file documented as of this encounter Plan of Treatment Not on file documented as of this encounter Visit Diagnoses Not on filedocumented in this encounter
--- OUTSIDE RECORDS SUMMARY | 2024-05-28 09:06 | XMS_ITS | Clinical Summary ---
Author Organization [facility] Address [address] [place] [address] Care Team Providers Care Site Supervisor Name Role Phone Everette Salazar MD Primary Care Provider [phone] Allergies Active Allergy Reactions Criticality Noted Date [...] file Legal Sex Male 5:58 PM SENIOR HYDROGEOLOGIST Gender Identity Not on file Sexual Orientation Not on file Last Filed Vital Signs Vital Sign Reading Time Taken Comments Blood Pressure 124/86 04/23/2020 10:30 AM SENIOR HYDROGEOLOGIST Pulse 64 04/23/2020 10:30 AM SENIOR HYDROGEOLOGIST Temperature 36.5 C (97.7 F) 04/23/2020 10:05 AM SENIOR HYDROGEOLOGIST Respiratory Rate 18 04/23/2020 10:30 AM SENIOR HYDROGEOLOGIST Oxygen Saturation 96% 04/23/2020 10:30 AM SENIOR HYDROGEOLOGIST Inhaled Oxygen Concentration - - Weight 118 kg (260 lb 2.3 oz) 04/21/2020 10:47 A M SENIOR HYDROGEOLOGIST Height 182 cm (5' 11.65 ) 04/21/2020 10:47 AM CS T Body Mass Index 35.62 04/21/2020 10:47 AM SENIOR HYDROGEOLOGIST Plan of Treatment Health Maintenance Due Date [...] 05/13/1999 COVID-19 Vaccine (2023-2 5 season) 2023 HPV Vaccines Aged Out No longer [...] topic Medical Devices Implanted Type Area Ice Cream Mixer Device Identifier Shelf Expiration Date Model / Serial / Lot Iol Adalid [id number] - [id number] Implanted:Qty: 1 on 04/23/2020 by Manjit Capellan MD at [facility] Lens Right: Eye ADALID - SURGICAL DIV [id number] 04/28/2023 [id number] / [id number] Description:Dr. Capellan confirm ed IOl Insurance [place] Care Teams Site Supervisor Relationship Specialty Start Date End Date Everette Salazar MD [address] [place] [address] PCP - General FAMILY PRACTICE 07/25/18
--- OUTSIDE RECORDS SUMMARY | 2024-05-28 09:06 | XMS_ITS | Clinical Summary ---
Author Organization [facility] Address [address] Attn: Epic Prelude ADT TU WEBB [address] Care Team Providers Care Channel Man Name Role Phone Unavailable Primary Care Provider Unavailabl e Social History Tobacco Use Types Packs/Day Years Used Date Smoking Tobacco: Never Assessed Sex and Gender Information Value Date Recorded Sex Assigned at Not on file Legal Sex Male 2:42 AM SOCIAL SECURITY ASSESSOR Gender Identity Not on file Sexual Orientation [...]
--- OUTSIDE RECORDS SUMMARY | 2024-05-28 09:06 | XMS_ITS | Encounter Summary ---
Author Organization [facility] Address [address] [place] [address] Care Team Providers Care Records Management Clerk Name Role Phone Unavailable Primary Care Provider Unavailabl e Encounter Details Date Type Department Care Team (Late st Contact Info) Description 09/10/2004 Outpatient Historical [facility] Primary Care - [address] [place] [address] Belgica Hernadez MD NO ADDRESS ON FILE Social History Tobacco Use Types Packs/Day Years Used Date Smoking Tobacco: Never Assessed Sex and Gender Information Value Date Recorded Sex Assigned at Not on file Legal Sex Male 2:42 AM ESCORT BLIND Gender Identity Not on file Sexual Orientation Not on file documented as of this encounter Plan of Treatment Not on file documented as of this encounter Visit Diagnoses Not on filedocumented in this encounter
--- OUTSIDE RECORDS SUMMARY | 2024-05-28 09:06 | XMS_ITS | Encounter Summary ---
Author Organization [facility] Address [facility] [place] [address] Care Team Providers Care Radar Signal Processing Engineer Name Role Phone Everette Salazar MD Primary Care Provider [phone] Encounter Details Date Type Department Care Team (Late st Contact Info) Description 08/05/2018 Abstract SFL CONVERSION [address] [place] [address] , Generic Conversion, Social History Tobacco Use Types Packs/Day Years Used Date Smoking Tobacco: Never Assessed Sex and Gender Information Value Date Recorded Sex Assigned at Not on file Legal Sex Male 5:58 PM INSIDE SALES DIRECTOR Gender Identity Not on file Sexual Orientation Not on file documented as of this encounter Plan of Treatment Not on file documented as of this encounter Visit Diagnoses Not on filedocumented in this encounter Additional Health Concerns Infection Onset Date Last Indicated Resolved Time COVID-19 Rule Out 04/20/2020 04/20/2020 04/21/2020 12:41 PM INSIDE SALES DIRECTOR COVID-19 Rule Out 04/23/2020 04/23/2020 04/23/2020 12:47 PM INSIDE SALES DIRECTOR documented as of this encounter Care Teams Radar Signal Processing Engineer Relationship Specialty Start Date End Date Everette Salazar MD [address] [place] [address] PCP - General FAMILY PRACTICE 07/25/18 documented as of this encounter
[2024-05-28 09:07] VITALS: BP 136/86; PULSE 80; RESP 14; TEMP 36.6; O2SAT 98
[2024-05-28 09:07] LABS: Basophils Absolute Auto 0.01 K/mm3 (0.00-0.10); Basophils Percent Auto 0.2 % (0.0-1.0); Eosinophils Absolute Auto 0.18 K/mm3 (0.02-0.50); Eosinophils Percent Auto 4.1 % (1.0-6.0); Hemoglobin 11.1 g/dL (14.0-18.0); Immature Granulocyte Absolute 0.03 K/mm3 (0.00-0.00); Immature Granulocyte Percent A 0.7 % (0.0-0.0); Lymphocytes Absolute Auto 0.35 K/mm3 (1.10-4.50); Lymphocytes Percent Auto 7.9 % (18.0-42.0); Mean Corpuscular HGB Conc 31.7 g/dL (32-36); Mean Corpuscular Hemoglobin 31.5 pg (27.0-31.0); Mean Corpuscular Volume 99.4 fL (78.0-102.0); Mean Platelet Volume 10.5 fl (8.7-11.0); Monocytes Absolute Auto 0.33 K/mm3 (0.10-0.90); Monocytes Percent Auto 7.5 % (2.0-11.0); Neutrophils Absolute Auto 3.52 K/mm3 (1.70-7.20); Neutrophils Percent Auto 79.6 % (50.0-70.0); Platelet Count Result 139 K/mm3 (150-420); Red Blood Count 3.52 M/mm3 (4.70-6.10); Red Cell Distribution Width 15.8 % (11.6-14.4); White Blood Count 4.4 K/mm3 (4.8-10.8)
[2024-05-28] MEDS: dexAMETHasone SOD PHOS INJ 4 MG/ML VIAL 12 MG IV PUSH (09:15)
[2024-05-28] MEDS: SODIUM CHLORIDE 0.9% IV 250 ML 10 ML IVPB (09:15)
[2024-05-28] MEDS: ACETAMINOPHEN 325 MG TABLET 650 MG PO (09:20)
[2024-05-28 09:22] LABS: Alanine Aminotransferase 44 U/L (16-63); Albumin Level 3.6 g/dL (3.4-5.0); Alkaline Phosphatase 170 U/L (46-116); Anion Gap 9 mmol/L (4-12); Aspartate Amino Transferase 17 U/L (15-37); Bilirubin,Total 0.3 mg/dL (0.00-1.00); Blood Urea Nitrogen 8 mg/dL (7-18); Calcium 8.9 mg/dL (8.5-10.1); Carbon Dioxide 28 mmol/L (21-32); Chloride 103 mmol/L (98-108); Estimated CRCL calculation 129 ml/min; Estimated Glomerular Filt Rate > 60; Glucose 144 mg/dL (70-99); Lactate Dehydrogenase 179 U/L (85-227); Osmolality Calculated 291 mOsm/kg (285-295); Phosphorus 4.1 mg/dL (2.6-4.7); Potassium 3.2 mmol/L (3.5-5.1); Sodium 140 mmol/L (136-145); Total Protein 7.2 g/dL (6.4-8.2); Uric Acid 3.3 mg/dL (3.5-7.2)
[2024-05-28] MEDS: diphenhydrAMINE HCl INJ 50 MG/ML VIAL 25 MG IV PUSH (09:22)
[2024-05-28] MEDS: FAMOTIDINE 20 MG/2 ML VIAL IV PUSH (09:25)
[2024-05-28] MEDS: RITUXIMAB ABBS IVPB (09:57)
[2024-05-28] MEDS: SODIUM CHLORIDE 0.9% IVPB (09:57)
[2024-05-28 10:30] VITALS: BP 129/79; PULSE 80; RESP 14; TEMP 36.6; O2SAT 98
[2024-05-28 12:03] VITALS: BP 129/80; PULSE 78; RESP 14; O2SAT 98
[2024-05-28] MEDS: HEPARIN SODIUM LOCK FLUSH 500 UNITS/5 ML SYRINGE IV PUSH (13:44)
[2024-05-28 13:46] VITALS: BP 132/70; PULSE 80; RESP 14; TEMP 36.6; O2SAT 97
--- NOTE | 2024-05-28 13:48 | PC.NURSE ---
Patient tolerated Rituximab infusion well. See MAR/patient care notes.
== END 2024-05-28 08:41 | disposition home or self-care (01) ==
PROVIDERS: PCP Family Medicine; Visit Provider Internal Medicine Hematology
DX: Z51.11 Encounter for antineoplastic chemotherapy (principal); C91.40 Hairy cell leukemia not having achieved remission
CPT/HCPCS: 36415; 36591; 80053; 83615; 84100; 84550; 85025; 96375; 96413; 96415; A9270; J1100; J1200; J7030; J7050; Q5115

== ENCOUNTER 2024-06-13 08:33 | Outpatient (CLI) | payer OTHER, SELFPAY ==
--- NOTE | ~2024-06-13 | CT_ITS ---
Clinical Indication: Hairy cell leukemia CT Scan of the Chest, Abdomen, and Pelvis with Contrast: Technique: Contiguous sections were acquired throughout the chest, abdomen, and pelvis after intraven ous administration of 100 cc of Omnipaque 350. Dose reduction technique was used on this scan by alex godfrey automated exposure control and iterative reconstruction technique. The dose-length product (DL P) was 1873.67 mGy-cm. Comparison: 11/07/2023 Findings: There is no evidence of any significant mediastinal, hilar or axillary lymphadenopathy. The mediastin al soft tissues appear normal. There is no evidence of pleural or pericardial effusion. The lungs are clear. No pulmonary nodules or infiltrates are noted. The liver, pancreas, gallbladder, adrenals and kidneys are within normal limits. Spleen mildly enlarg ed at 14.6 cm in length. No evidence of aortic aneurysm. No lymphadenopathy. No bowel obstruction or bowel wall thickening. There is no evidence to suggest acute appendicitis. Urinary bladder is unremarkable. No pelvic mass. No ascites. Stable T11 compression deformity. Impression: Mild splenomegaly, as above. No other significant findings. Reviewed, dictated and finalized at [facility]. Impression: Mild splenomegaly, as above. No other significant findings.
--- OUTSIDE RECORDS SUMMARY | 2024-06-13 08:58 | XMS_ITS | Clinical Summary ---
Author Organization [facility] Address [address] [facility] Attn: Epic Prelude ADT TU WEBB [address] Care Team Providers Care Water Quality Analyst Name Role Phone Unavailable Primary Care Provider Unavailabl e Social History Tobacco Use Types Packs/Day Years Used Date Smoking Tobacco: Never Assessed Sex and Gender Information Value Date Recorded Sex Assigned at Not on file Legal Sex Male 2:42 AM EASTERN PHILOSOPHY PROFESSOR Gender Identity Not on file Sexual [...]
--- OUTSIDE RECORDS SUMMARY | 2024-06-13 08:58 | XMS_ITS | Encounter Summary ---
Author Organization [facility] Address [facility] [place] [address] Care Team Providers Care Systems Developer Name Role Phone Everette Salazar MD Primary Care Provider [phone] Encounter Details Date Type Department Care Team (Late st Contact Info) Description 08/05/2018 Abstract SFL CONVERSION [address] [place] [address] , Generic Conversion, Social History Tobacco Use Types Packs/Day Years Used Date Smoking Tobacco: Never Assessed Sex and Gender Information Value Date Recorded Sex Assigned at Not on file Legal Sex Male 5:58 PM SENIOR SUSTAINABILITY CONSULTANT Gender Identity Not on file Sexual Orientation Not on file documented as of this encounter Plan of Treatment Not on file documented as of this encounter Visit Diagnoses Not on filedocumented in this encounter Additional Health Concerns Infection Onset Date Last Indicated Resolved Time COVID-19 Rule Out 04/20/2020 04/20/2020 04/21/2020 12:41 PM SENIOR SUSTAINABILITY CONSULTANT COVID-19 Rule Out 04/23/2020 04/23/2020 04/23/2020 12:47 PM SENIOR SUSTAINABILITY CONSULTANT documented as of this encounter Care Teams Systems Developer Relationship Specialty Start Date End Date Everette Salazar MD [address] [place] [address] PCP - General FAMILY PRACTICE 07/25/18 documented as of this encounter
--- OUTSIDE RECORDS SUMMARY | 2024-06-13 08:58 | XMS_ITS | Encounter Summary ---
Author Organization [facility] Address [address] [place] [address] Care Team Providers Care Bulk Filler Name Role Phone Unavailable Primary Care Provider Unavailabl e Encounter Details Date Type Department Care Team (Late st Contact Info) Description 08/12/2004 Outpatient Historical [facility] Primary Care - [address] [place] [address] Belgica Hernadez MD NO ADDRESS ON FILE Social History Tobacco Use Types Packs/Day Years Used Date Smoking Tobacco: Never Assessed Sex and Gender Information Value Date Recorded Sex Assigned at Not on file Legal Sex Male 2:42 AM FRONT END ARCHITECT Gender Identity Not on file Sexual Orientation Not on file documented as of this encounter Plan of Treatment Not on file documented as of this encounter Visit Diagnoses Not on filedocumented in this encounter
--- OUTSIDE RECORDS SUMMARY | 2024-06-13 08:58 | XMS_ITS | Encounter Summary ---
Author Organization [facility] Address [address] [place] [address] Care Team Providers Care Shop Teacher Name Role Phone Unavailable Primary Care Provider Unavailabl e Encounter Details Date Type Department Care Team (Late st Contact Info) Description 09/10/2004 Outpatient Historical [facility] Primary Care - [address] [place] [address] Belgica Hernadez MD NO ADDRESS ON FILE Social History Tobacco Use Types Packs/Day Years Used Date Smoking Tobacco: Never Assessed Sex and Gender Information Value Date Recorded Sex Assigned at Not on file Legal Sex Male 2:42 AM AUTOCAD DETAILER Gender Identity Not on file Sexual Orientation Not on file documented as of this encounter Plan of Treatment Not on file documented as of this encounter Visit Diagnoses Not on filedocumented in this encounter
--- OUTSIDE RECORDS SUMMARY | 2024-06-13 08:58 | XMS_ITS | Clinical Summary ---
Author Organization [facility] Address [address] [place] [address] Care Team Providers Care Training Generalist Name Role Phone Everette Salazar MD Primary Care Provider [phone] Allergies Active Allergy Reactions Criticality Noted Date [...] on file Legal Sex Male 5:58 PM NURSING STAFFING COORDINATOR Gender Identity Not on file Sexual Orientation Not on file Last Filed Vital Signs Vital Sign Reading Time Taken Comments Blood Pressure 124/86 04/23/2020 10:30 AM NURSING STAFFING COORDINATOR Pulse 64 04/23/2020 10:30 AM NURSING STAFFING COORDINATOR Temperature 36.5 C (97.7 F) 04/23/2020 10:05 AM NURSING STAFFING COORDINATOR Respiratory Rate 18 04/23/2020 10:30 AM NURSING STAFFING COORDINATOR Oxygen Saturation 96% 04/23/2020 10:30 AM NURSING STAFFING COORDINATOR Inhaled Oxygen Concentration - - Weight 118 kg (260 lb 2.3 oz) 04/21/2020 10:47 A M NURSING STAFFING COORDINATOR Height 182 cm (5' 11.65 ) 04/21/2020 10:47 AM CS T Body Mass Index 35.62 04/21/2020 10:47 AM NURSING STAFFING COORDINATOR Plan of Treatment Health Maintenance Due Date Last Done Comments Annual Physical 05/13/1983 Pneumococcal Vaccine: Pediat rics (0 to 5 Years) and At-Risk Patients (6 to 49 Years) (1 of 2 - PCV) 1986 [...] this topic Medical Devices Implanted Type Area Plumbing And Heating Mechanic Device Identifier Shelf Expiration Date Model / Serial / Lot Iol Adalid [id number] - [id number] Implanted:Qty: 1 on 04/23/2020 by Manjit Capellan MD at [facility] Lens Right: Eye ADALID - SURGICAL DIV [id number] 04/28/2023 [id number] / [id number] Description:Dr. Capellan confirm ed IOl Insurance [employer] Care Teams Training Generalist Relationship Specialty Start Date End Date Everette Salazar MD [address] [facility] [place] [address] PCP - General FAMILY PRACTICE 07/25/18
[2024-06-13 09:25] LABS: Basophils Absolute Auto 0.02 K/mm3 (0.00-0.10); Basophils Percent Auto 0.5 % (0.0-1.0); Eosinophils Absolute Auto 0.21 K/mm3 (0.02-0.50); Eosinophils Percent Auto 4.7 % (1.0-6.0); Hematocrit 36.8 % (40.0-54.0); Hemoglobin 11.7 g/dL (14.0-18.0); Immature Granulocyte Absolute 0.03 K/mm3 (0.00-0.00); Immature Granulocyte Percent A 0.7 % (0.0-0.0); Lymphocytes Absolute Auto 0.31 K/mm3 (1.10-4.50); Mean Corpuscular HGB Conc 31.8 g/dL (32-36); Mean Corpuscular Volume 97.6 fL (78.0-102.0); Mean Platelet Volume 10.3 fl (8.7-11.0); Monocytes Absolute Auto 0.38 K/mm3 (0.10-0.90); Monocytes Percent Auto 8.6 % (2.0-11.0); Neutrophils Absolute Auto 3.48 K/mm3 (1.70-7.20); Neutrophils Percent Auto 78.5 % (50.0-70.0); Platelet Count Result 180 K/mm3 (150-420); Red Blood Count 3.77 M/mm3 (4.70-6.10); Red Cell Distribution Width 15.1 % (11.6-14.4); White Blood Count 4.4 K/mm3 (4.8-10.8)
[2024-06-13 09:40] LABS: Alanine Aminotransferase 55 U/L (16-63); Albumin Level 3.8 g/dL (3.4-5.0); Alkaline Phosphatase 157 U/L (46-116); Anion Gap 10 mmol/L (4-12); Aspartate Amino Transferase 21 U/L (15-37); Bilirubin,Total 0.3 mg/dL (0.00-1.00); Blood Urea Nitrogen 16 mg/dL (7-18); Calcium 8.9 mg/dL (8.5-10.1); Carbon Dioxide 27 mmol/L (21-32); Chloride 104 mmol/L (98-108); Estimated Glomerular Filt Rate > 60; Glucose 150 mg/dL (70-99); Lactate Dehydrogenase 187 U/L (85-227); Osmolality Calculated 296 mOsm/kg (285-295); Phosphorus 3.8 mg/dL (2.6-4.7); Sodium 141 mmol/L (136-145); Total Protein 7.4 g/dL (6.4-8.2)
== END 2024-06-13 08:34 | disposition home or self-care (01) ==
LOC: CHSIMG 08:41
PROVIDERS: PCP Family Medicine; Visit Provider Internal Medicine Hematology
DX: C91.40 Hairy cell leukemia not having achieved remission (principal); R16.1 Splenomegaly, not elsewhere classified
CPT/HCPCS: 36415; 71260; 74177; 80053; 83615; 84100; 84550; 85025; Q9967

== ENCOUNTER 2024-07-13 15:37 | Outpatient (CLI) | payer OTHER, SELFPAY ==
--- NOTE | ~2024-07-13 | XR_ITS ---
XR chest 2V Ordering provider: Atilio Berrios MD History: 44 years Male with . cough/ chest pain/ hemoptysis x2 days . Comparison: None. FINDINGS: MEDIASTINUM: The cardiac silhouette is not enlarged. Left central line with the tip overlying superior vena cava. LUNGS: No effusions or pneumothorax. Infiltrate is seen in both lower lobes and both perihilar areas. OTHER: No free air under the diaphragm. Healing fractures in the right midzone or pleural thickening. Degenerative changes of the spine. IMPRESSION: Bilateral perihilar and lower lobe pneumonia. Reviewed, dictated and finalized at location A.
--- OUTSIDE RECORDS SUMMARY | 2024-07-13 15:44 | XMS_ITS | Clinical Summary ---
Author Organization [facility] Address [address] [facility] Attn: Epic Prelude ADT TU WEBB [address] Care Team Providers Care Glass Selector Name Role Phone Unavailable Primary Care Provider Unavailabl e Social History Tobacco Use Types Packs/Day Years Used Date Smoking Tobacco: Never Assessed Sex and Gender Information Value Date Recorded Sex Assigned at Not on file Legal Sex Male 2:42 AM METAPHYSICIAN Gender Identity Not on file Sexual Orientation [...]
--- OUTSIDE RECORDS SUMMARY | 2024-07-13 15:44 | XMS_ITS | Encounter Summary ---
Author Organization [facility] Address [address] [place] [address] Care Team Providers Care Flute Teacher Name Role Phone Unavailable Primary Care Provider Unavailabl e Encounter Details Date Type Department Care Team (Late st Contact Info) Description 09/10/2004 Outpatient Historical [facility] Primary Care - [address] [place] [address] Belgica Hernadez MD NO ADDRESS ON FILE Social History Tobacco Use Types Packs/Day Years Used Date Smoking Tobacco: Never Assessed Sex and Gender Information Value Date Recorded Sex Assigned at Not on file Legal Sex Male 2:42 AM EDGE STITCHER Gender Identity Not on file Sexual Orientation Not on file documented as of this encounter Plan of Treatment Not on file documented as of this encounter Visit Diagnoses Not on filedocumented in this encounter
--- OUTSIDE RECORDS SUMMARY | 2024-07-13 15:44 | XMS_ITS | Clinical Summary ---
Author Organization [facility] Address [address] [place] [address] Care Team Providers Care Casino Assistant Manager Name Role Phone Everette Salazar MD Primary Care Provider [phone] Allergies Active Allergy Reactions Criticality Noted Date [...] on file Legal Sex Male 5:58 PM YARN POLISHING MACHINE OPERATOR Gender Identity Not on file Sexual Orientation Not on file Last Filed Vital Signs Vital Sign Reading Time Taken Comments Blood Pressure 124/86 04/23/2020 10:30 AM YARN POLISHING MACHINE OPERATOR Pulse 64 04/23/2020 10:30 AM YARN POLISHING MACHINE OPERATOR Temperature 36.5 C (97.7 F) 04/23/2020 10:05 AM YARN POLISHING MACHINE OPERATOR Respiratory Rate 18 04/23/2020 10:30 AM YARN POLISHING MACHINE OPERATOR Oxygen Saturation 96% 04/23/2020 10:30 AM YARN POLISHING MACHINE OPERATOR Inhaled Oxygen Concentration - - Weight 118 kg (260 lb 2.3 oz) 04/21/2020 10:47 A M YARN POLISHING MACHINE OPERATOR Height 182 cm (5' 11.65 ) 04/21/2020 10:47 AM CS T Body Mass Index 35.62 04/21/2020 10:47 AM YARN POLISHING MACHINE OPERATOR Plan of Treatment Health Maintenance Due Date Last Done Comments Annual Physical 05/13/1983 Hepatitis C 1998 DTaP, Tdap and Td Vaccines ( 1 - Tdap) 05/13/1999 Hepatitis B Vaccines (1 of 3 - 19+ 3-dose series) 05/13/1999 Pneumococcal Vaccine: Pediat rics (0 to 5 Years) and At-Risk Patients (6 to 49 Years) (1 of 2 - PCV) 05/13/1999 COVID-19 Vaccine (2023-2 5 season) 2023 [...] this topic Medical Devices Implanted Type Area Small Wind Energy Installer Device Identifier Shelf Expiration Date Model / Serial / Lot Iol Adalid Sn60wf - [id number] Implanted:Qty: 1 on 04/23/2020 by Manjit Capellan MD at [facility] Lens Right: Eye ADALID - SURGICAL DIV [id number] 04/28/2023 [id number] / [id number] Description:Dr. Capellan confirm ed IOl Insurance [employer] Care Teams Casino Assistant Manager Relationship Specialty Start Date End Date Everette Salazar MD [address] [facility] [place] [place] [address] PCP - General FAMILY PRACTICE 07/25/18
--- OUTSIDE RECORDS SUMMARY | 2024-07-13 15:44 | XMS_ITS | Encounter Summary ---
Author Organization [facility] Address [address] [place] [address] Care Team Providers Care Facilities Operator Name Role Phone Unavailable Primary Care Provider Unavailabl e Encounter Details Date Type Department Care Team (Late st Contact Info) Description 08/12/2004 Outpatient Historical [facility] Primary Care - [address] [place] [address] Belgica Hernadez MD NO ADDRESS ON FILE Social History Tobacco Use Types Packs/Day Years Used Date Smoking Tobacco: Never Assessed Sex and Gender Information Value Date Recorded Sex Assigned at Not on file Legal Sex Male 2:42 AM PASSENGER CAR CLEANING SUPERVISOR Gender Identity Not on file Sexual Orientation Not on file documented as of this encounter Plan of Treatment Not on file documented as of this encounter Visit Diagnoses Not on filedocumented in this encounter
--- OUTSIDE RECORDS SUMMARY | 2024-07-13 15:44 | XMS_ITS | Encounter Summary ---
Author Organization [facility] Address [facility] [place] [address] Care Team Providers Care Care Navigator Name Role Phone Everette Salazar MD Primary Care Provider [phone] Encounter Details Date Type Department Care Team (Late st Contact Info) Description 08/05/2018 Abstract SFL CONVERSION [address] [place] [address] , Generic Conversion, Social History Tobacco Use Types Packs/Day Years Used Date Smoking Tobacco: Never Assessed Sex and Gender Information Value Date Recorded Sex Assigned at Not on file Legal Sex Male 5:58 PM MAMMOGRAPHY TECHNICIAN Gender Identity Not on file Sexual Orientation Not on file documented as of this encounter Plan of Treatment Not on file documented as of this encounter Visit Diagnoses Not on filedocumented in this encounter Additional Health Concerns Infection Onset Date Last Indicated Resolved Time COVID-19 Rule Out 04/20/2020 04/20/2020 04/21/2020 12:41 PM MAMMOGRAPHY TECHNICIAN COVID-19 Rule Out 04/23/2020 04/23/2020 04/23/2020 12:47 PM MAMMOGRAPHY TECHNICIAN documented as of this encounter Care Teams Care Navigator Relationship Specialty Start Date End Date Everette Salazar MD [address] [place] [address] PCP - General FAMILY PRACTICE 07/25/18 documented as of this encounter
[2024-07-13 16:31] LABS: Basophils Absolute Auto 0.01 K/mm3 (0.00-0.10); Basophils Percent Auto 0.1 % (0.0-1.0); Eosinophils Absolute Auto 0.04 K/mm3 (0.02-0.50); Eosinophils Percent Auto 0.6 % (1.0-6.0); Hematocrit 31.8 % (40.0-54.0); Hemoglobin 10.1 g/dL (14.0-18.0); Immature Granulocyte Absolute 0.03 K/mm3 (0.00-0.00); Immature Granulocyte Percent A 0.4 % (0.0-0.0); Lymphocytes Absolute Auto 0.28 K/mm3 (1.10-4.50); Lymphocytes Percent Auto 4.1 % (18.0-42.0); Mean Corpuscular HGB Conc 31.8 g/dL (32-36); Mean Corpuscular Hemoglobin 29.9 pg (27.0-31.0); Mean Corpuscular Volume 94.1 fL (78.0-102.0); Mean Platelet Volume 9.3 fl (8.7-11.0); Monocytes Absolute Auto 0.32 K/mm3 (0.10-0.90); Monocytes Percent Auto 4.7 % (2.0-11.0); Neutrophils Absolute Auto 6.19 K/mm3 (1.70-7.20); Neutrophils Percent Auto 90.1 % (50.0-70.0); Platelet Count Result 219 K/mm3 (150-420); Red Blood Count 3.38 M/mm3 (4.70-6.10); Red Cell Distribution Width 15.2 % (11.6-14.4); White Blood Count 6.9 K/mm3 (4.8-10.8)
[2024-07-13 16:54] LABS: Influenza A QL RT-PCR Negative (Negative); Influenza B QL RT-PCR Negative (Negative); RSV RNA, RT-PCR Negative (Negative); SARS-CoV-2 RNA PCR Positive (Negative)
[2024-07-13 16:57] LABS: Hemoglobin A1C 6.1 % (<5.7)
[2024-07-13 17:07] LABS: Alanine Aminotransferase 49 U/L (6-50); Albumin Level 4.1 g/dL (3.5-5.1); Alkaline Phosphatase 125 U/L (38-126); Anion Gap 11 mmol/L (4-12); Aspartate Amino Transferase 46 U/L (17-59); Bilirubin,Total 0.4 mg/dL (0.2-1.3); Blood Urea Nitrogen 14 mg/dL (9-20); Calcium 8.9 mg/dL (8.4-10.2); Carbon Dioxide 23 mmol/L (22-30); Chloride 106 mmol/L (98-107); Estimated Glomerular Filt Rate > 60; Glucose 97 mg/dL (65-110); Osmolality Calculated 290 mOsm/kg (285-295); Potassium 3.6 mmol/L (3.4-5.0); Sodium 140 mmol/L (137-145)
== END 2024-07-13 15:38 | disposition home or self-care (01) ==
PROVIDERS: PCP Family Medicine; Visit Provider Internal Medicine Hematology
DX: R05.9 Cough, unspecified (principal); E11.9 Type 2 diabetes mellitus without complications
CPT/HCPCS: 36415; 71046; 80053; 83036; 85025; 87040; 87637

== ENCOUNTER 2024-08-10 11:31 | Outpatient (CLI) | payer OTHER, SELFPAY ==
--- OUTSIDE RECORDS SUMMARY | 2024-08-10 11:35 | XMS_ITS | Encounter Summary ---
Author Organization [facility] Address [address] [place] [address] Care Team Providers Care Residential Remodeling Subcontractor Name Role Phone Unavailable Primary Care Provider Unavailabl e Encounter Details Date Type Department Care Team (Late st Contact Info) Description 08/12/2004 Outpatient Historical [facility] Primary Care - [address] [place] [address] Belgica Hernadez MD NO ADDRESS ON FILE Social History Tobacco Use Types Packs/Day Years Used Date Smoking Tobacco: Never Assessed Sex and Gender Information Value Date Recorded Sex Assigned at Not on file Legal Sex Male 2:42 AM RETAIL FIELD MERCHANDISER Gender Identity Not on file Sexual Orientation Not on file documented as of this encounter Plan of Treatment Not on file documented as of this encounter Visit Diagnoses Not on filedocumented in this encounter
--- OUTSIDE RECORDS SUMMARY | 2024-08-10 11:35 | XMS_ITS | Clinical Summary ---
Author Organization [facility] Address [address] [facility] Attn: Epic Prelude ADT TU WEBB [address] Care Team Providers Care Gypsum Roofer Name Role Phone Unavailable Primary Care Provider Unavailabl e Social History Tobacco Use Types Packs/Day Years Used Date Smoking Tobacco: Never Assessed Sex and Gender Information Value Date Recorded Sex Assigned at Not on file Legal Sex Male 2:42 AM BOX SHOOK PATCHER Gender Identity Not on file Sexual Orientation [...]
--- OUTSIDE RECORDS SUMMARY | 2024-08-10 11:35 | XMS_ITS | Encounter Summary ---
Author Organization [facility] Address [address] [place] [address] Care Team Providers Care Washer Repairman Name Role Phone Unavailable Primary Care Provider Unavailabl e Encounter Details Date Type Department Care Team (Late st Contact Info) Description 09/10/2004 Outpatient Historical [facility] Primary Care - [address] [place] [address] Belgica Hernadez MD NO ADDRESS ON FILE Social History Tobacco Use Types Packs/Day Years Used Date Smoking Tobacco: Never Assessed Sex and Gender Information Value Date Recorded Sex Assigned at Not on file Legal Sex Male 2:42 AM DICE PERSON Gender Identity Not on file Sexual Orientation Not on file documented as of this encounter Plan of Treatment Not on file documented as of this encounter Visit Diagnoses Not on filedocumented in this encounter
[2024-08-10 11:40] VITALS: BP 121/74; PULSE 80; RESP 16; TEMP 36.6; O2SAT 97; BMI 40.1
[2024-08-10] MEDS: HEPARIN SODIUM LOCK FLUSH 500 UNITS/5 ML SYRINGE IV PUSH (11:47)
== END 2024-08-10 11:32 | disposition home or self-care (01) ==
PROVIDERS: PCP Family Medicine; Visit Provider Internal Medicine Hematology
DX: Z45.2 Encounter for adjustment and management of vascular access device (principal); C91.40 Hairy cell leukemia not having achieved remission
CPT/HCPCS: 96523

== ENCOUNTER 2024-10-18 08:23 | Outpatient (CLI) | payer OTHER, SELFPAY ==
--- OUTSIDE RECORDS SUMMARY | 2024-10-18 08:38 | XMS_ITS | Encounter Summary ---
Author Organization [facility] Address [address] [place] [address] Care Team Providers Care Tire Retreader Name Role Phone Unavailable Primary Care Provider Unavailabl e Encounter Details Date Type Department Care Team (Late st Contact Info) Description 08/12/2004 Outpatient Historical [facility] Primary Care - [address] [place] [address] Belgica Hernadez MD NO ADDRESS ON FILE Social History Tobacco Use Types Packs/Day Years Used Date Smoking Tobacco: Never Assessed Sex and Gender Information Value Date Recorded Sex Assigned at Not on file Legal Sex Male 2:42 AM TECHNICAL PUBLICATIONS MANAGER Gender Identity Not on file Sexual Orientation Not on file documented as of this encounter Plan of Treatment Not on file documented as of this encounter Visit Diagnoses Not on filedocumented in this encounter
--- OUTSIDE RECORDS SUMMARY | 2024-10-18 08:38 | XMS_ITS | Encounter Summary ---
Author Organization [facility] Address [address] [place] [address] Care Team Providers Care Orthotic Technician Name Role Phone Unavailable Primary Care Provider Unavailabl e Encounter Details Date Type Department Care Team (Late st Contact Info) Description 09/10/2004 Outpatient Historical [facility] Primary Care - [address] [place] [address] Belgica Hernadez MD NO ADDRESS ON FILE Social History Tobacco Use Types Packs/Day Years Used Date Smoking Tobacco: Never Assessed Sex and Gender Information Value Date Recorded Sex Assigned at Not on file Legal Sex Male 2:42 AM CORE RESCUER Gender Identity Not on file Sexual Orientation Not on file documented as of this encounter Plan of Treatment Not on file documented as of this encounter Visit Diagnoses Not on filedocumented in this encounter
--- OUTSIDE RECORDS SUMMARY | 2024-10-18 08:38 | XMS_ITS | Clinical Summary ---
Author Organization [facility] Address [address] [facility] Attn: Epic Prelude ADT TU WEBB [address] Care Team Providers Care Financial Services Auditor Name Role Phone Unavailable Primary Care Provider Unavailabl e Social History Tobacco Use Types Packs/Day Years Used Date Smoking Tobacco: Never Assessed Sex and Gender Information Value Date Recorded Sex Assigned at Not on file Legal Sex Male 2:42 AM SHIPPING ASSOCIATE Gender Identity Not on file Sexual Orientation Not on file Plan of Treatment Health Maintenance Due Date Last Done Comments HPV VACCINES (1 - Male 3-dose series) 05/13/1995 DTAP/TDAP/TD VACCINES (1 - Tdap) 05/13/1999 HEPATITIS B VACCINES (1 of 3 - 19+ 3-dose series) 04/28 INFLUENZA VACCINE (#1) 2024
[2024-10-18 08:43] LABS: Hematocrit 39.2 % (40.0-54.0); Hemoglobin 12.7 g/dL (14.0-18.0); Immature Granulocyte Percent A 0.4 % (0.0-0.0); Lymphocytes Absolute Auto 0.54 K/mm3 (1.10-4.50); Mean Corpuscular HGB Conc 32.4 g/dL (32-36); Mean Corpuscular Hemoglobin 30.0 pg (27.0-31.0); Mean Corpuscular Volume 92.5 fL (78.0-102.0); Nucleated Red Blood Cells Absolute Auto 0.00 K/mm3 (0.00-0.00); Nucleated Red Blood Cells Perc 0.0 % (0-0.0); Platelet Count Result 168 K/mm3 (150-420); Red Blood Count 4.24 M/mm3 (4.70-6.10); White Blood Count 4.6 K/mm3 (4.8-10.8)
[2024-10-18 12:23] LABS: Alanine Aminotransferase 31 U/L (6-50); Albumin Level 4.5 g/dL (3.5-5.1); Alkaline Phosphatase 159 U/L (38-126); Anion Gap 9 mmol/L (4-12); Aspartate Amino Transferase 27 U/L (17-59); Bilirubin,Total 0.4 mg/dL (0.2-1.3); Blood Urea Nitrogen 12 mg/dL (9-20); Calcium 9.5 mg/dL (8.4-10.2); Carbon Dioxide 23 mmol/L (22-30); Chloride 107 mmol/L (98-107); Estimated Glomerular Filt Rate > 60; Glucose 189 mg/dL (65-110); Osmolality Calculated 292 mOsm/kg (285-295); Potassium 3.8 mmol/L (3.4-5.0); Sodium 139 mmol/L (137-145); Total Protein 7.1 g/dL (6.3-8.2); Uric Acid 3.7 mg/dL (3.5-8.5)
== END 2024-10-18 08:24 | disposition home or self-care (01) ==
LOC: CHSTREATRM 08:27
PROVIDERS: PCP Family Medicine; Visit Provider Internal Medicine Hematology
DX: C91.40 Hairy cell leukemia not having achieved remission (principal)
CPT/HCPCS: 36415; 36591; 80053; 83615; 84100; 84550; 85025

== ENCOUNTER 2025-02-25 08:26 | Outpatient (CLI) | payer OTHER, SELFPAY ==
--- OUTSIDE RECORDS SUMMARY | 2025-02-25 08:35 | XMS_ITS | Encounter Summary ---
Author Organization [facility] Address [facility] [place] [address] Care Team Providers Care Vba Programmer Name Role Phone Everette Salazar MD Primary Care Provider Encounter Details Date Type Department Care Team (Late st Contact Info) Description 08/05/2018 Abstract SFL CONVERSION [address] [place] [address] , Generic Conversion, Social History Tobacco Use Types Packs/Day Years Used Date Smoking Tobacco: Never Assessed Sex and Gender Information Value Date Recorded Sex Assigned at Not on file Legal Sex Male 5:58 PM EXPELLER OPERATOR Gender Identity Not on file Sexual Orientation Not on file documented as of this encounter Plan of Treatment Not on file documented as of this encounter Visit Diagnoses Not on filedocumented in this encounter Additional Health Concerns Infection Onset Date Last Indicated Resolved Time COVID-19 Rule Out 04/20/2020 04/20/2020 04/21/2020 12:41 PM EXPELLER OPERATOR COVID-19 Rule Out 04/23/2020 04/23/2020 04/23/2020 12:47 PM EXPELLER OPERATOR documented as of this encounter Care Teams Vba Programmer Relationship Specialty Start Date End Date Everette Salazar MD [address] [place] [id number] PCP - General FAMILY PRACTICE 07/25/18 documented as of this encounter
--- OUTSIDE RECORDS SUMMARY | 2025-02-25 08:35 | XMS_ITS | Clinical Summary ---
Author Organization [facility] Address [address] Attn: Epic Prelude ADT TU WEBB [address] Care Team Providers Care Network/Telecom Engineer Name Role Phone Unavailable Primary Care Provider Unavailabl e Social History Tobacco Use Types Packs/Day Years Used Date Smoking Tobacco: Never Assessed Sex and Gender Information Value Date Recorded Sex Assigned at Not on file Legal Sex Male 2:42 AM LICENSED NURSE PRACTITIONER Gender Identity Not on file Sexual Orientation Not on file Plan of Treatment Health Maintenance Due Date Last Done Comments DTAP/TDAP/TD VACCINES (1 - Tdap) 05/13/1999 HEPATITIS B VACCINES (1 of 3 - 19+ 3-dose series) 04/28 INFLUENZA VACCINE (#1) 2024 HPV VACCINES (No Doses Required) Completed
--- OUTSIDE RECORDS SUMMARY | 2025-02-25 08:35 | XMS_ITS | Encounter Summary ---
Author Organization [facility] Address [address] [place] [address] Care Team Providers Care Per Assessment Nurse Name Role Phone Unavailable Primary Care Provider Unavailabl e Encounter Details Date Type Department Care Team (Late st Contact Info) Description 08/12/2004 Outpatient Historical [facility] Primary Care - [address] [place] [address] Belgica Hernadez MD NO ADDRESS ON FILE Social History Tobacco Use Types Packs/Day Years Used Date Smoking Tobacco: Never Assessed Sex and Gender Information Value Date Recorded Sex Assigned at Not on file Legal Sex Male 2:42 AM SETTER COLD ROLLING MACHINE Gender Identity Not on file Sexual Orientation Not on file documented as of this encounter Plan of Treatment Not on file documented as of this encounter Visit Diagnoses Not on filedocumented in this encounter
--- OUTSIDE RECORDS SUMMARY | 2025-02-25 08:35 | XMS_ITS | Clinical Summary ---
Author Organization [facility] Address [address] [place] [address] Care Team Providers Care Shoe Shiner Name Role Phone Everette Salazar MD Primary Care Provider [phone] Allergies Active Allergy Reactions Criticality Noted Date Comments Egg Protein (Egg White) GI Upset Medium 04/21/2020 Penicillins Swelling High [...] to taking Prednisone a couple of years ago.pt states Family History Medical History Relation Comments [...] on file Legal Sex Male 5:58 PM HEADING PINNER Gender Identity Not on file Sexual Orientation Not on file Last Filed Vital Signs Vital Sign Reading Time Taken Comments Blood Pressure 124/86 04/23/2020 10:30 AM HEADING PINNER Pulse 64 04/23/2020 10:30 AM HEADING PINNER Temperature 36.5 C (97.7 F) 04/23/2020 10:05 AM HEADING PINNER Respiratory Rate 18 04/23/2020 10:30 AM HEADING PINNER Oxygen Saturation 96% 04/23/2020 10:30 AM HEADING PINNER Inhaled Oxygen Concentration - - Weight 118 kg (260 lb 2.3 oz) 04/21/2020 10:47 A M HEADING PINNER Height 182 cm (5' 11.65) 04/21/2020 10:47 AM CS T Body Mass Index 35.62 04/21/2020 10:47 AM HEADING PINNER Plan of Treatment Health Maintenance Due Date Last Done Comments Annual Physical 05/13/1983 Hepatitis C 1998 DTaP, Tdap and Td Vaccines ( 1 - Tdap) 05/13/1999 Hepatitis B Vaccines (1 of 3 - 19+ 3-dose series) 05/13/1999 Pneumococcal Vaccine: Pediat rics (0 to 5 Years) and At-Risk Patients (6 to 49 Years) (1 of 2 - PCV) 05/13/1999 HPV Vaccines (1 - 3-dose SCD M series) 05/13/2007 COVID-19 Vaccine (2024-2 6 season) 2024 Influenza Adult (#1) 2024 Hepatitis A Vaccines Aged Out No long er eligible based on patient's age to complete [...] this topic Medical Devices Implanted Type Area Market Manager Device Identifier Shelf Expiration Date Model / Serial / Lot Iol Adalid [id number] - [id number] Implanted:Qty: 1 on 04/23/2020 by Manjit Capellan MD at [facility] Lens Right: Eye [employer] - [employer] [id number] 04/28/2023 [id number] / [id number] 10 / NA Description:Dr. Capellan confirm ed IOl Insurance [employer] Care Teams Shoe Shiner Relationship Specialty Start Date End Date Everette Salazar MD [address] [place] [address] PCP - General FAMILY PRACTICE 07/25/18
--- OUTSIDE RECORDS SUMMARY | 2025-02-25 08:35 | XMS_ITS | Encounter Summary ---
Author Organization [facility] Address [address] [place] [address] Care Team Providers Care Petal Shaper Hand Name Role Phone Unavailable Primary Care Provider Unavailabl e Encounter Details Date Type Department Care Team (Late st Contact Info) Description 09/10/2004 Outpatient Historical [facility] Primary Care - [address] [place] [address] Belgica Hernadez MD NO ADDRESS ON FILE Social History Tobacco Use Types Packs/Day Years Used Date Smoking Tobacco: Never Assessed Sex and Gender Information Value Date Recorded Sex Assigned at Not on file Legal Sex Male 2:42 AM PSYCHOLOGY PROFESSOR Gender Identity Not on file Sexual Orientation Not on file documented as of this encounter Plan of Treatment Not on file documented as of this encounter Visit Diagnoses Not on filedocumented in this encounter
[2025-02-25 08:38] VITALS: BP 121/76; PULSE 80; RESP 14; TEMP 36.5; O2SAT 99
[2025-02-25] MEDS: HEPARIN SODIUM LOCK FLUSH 500 UNITS/5 ML SYRINGE IV PUSH (08:43)
== END 2025-02-25 08:27 | disposition home or self-care (01) ==
PROVIDERS: PCP Family Medicine; Visit Provider Internal Medicine Hematology
DX: Z45.2 Encounter for adjustment and management of vascular access device (principal); C91.40 Hairy cell leukemia not having achieved remission
CPT/HCPCS: 96523